=== PATIENT | female | born 1935 | race Caucasian/White ===

== ENCOUNTER → 2016-05-31 | Outpatient (CLI) | payer OTHER, MEDICARE ==
[~2016-05-31] MED LIST: ACET-1256 PO; ASPEC81 PO; ASTN; ATEN-173 PO; CLR10 PO; CLTP PO; GLUC750T PO; LSX20 PO; MULT-845 PO; NXM/40 PO; OMEG120013 PO
--- NOTE | 2016-05-31 11:51 | DIAGNOSTIC IMAGING REPORT ---
ULTRASOUND LEFT VENOUS DOPP LOWER EXT UNILAT CLINICAL HISTORY: Left leg edema COMPARISON STUDY: No previous studies for comparison. FINDINGS: Real-time and color flow Doppler imaging were performed. Flow was seen within the femoral, popliteal and calf veins with no intraluminal thrombus demonstrated. The saphenous vein is patent. IMPRESSION: No evidence of left lower extremity DVT. Electronically signed by: Ivan Figueroa M.D. 05/31/2016 11:50 AM Dictated Date/Time: 05/31/2016 11:50 AM
--- NOTE | 2016-05-31 12:10 | DIAGNOSTIC IMAGING REPORT ---
LEFT FOOT MIN 3 VIEWS ROUTINE CLINICAL HISTORY: LEFT LOWER LEG Edema, hx FALL, PT TO ULTRA AFTER PLEASE COMPARISON: None. DISCUSSION: Moderate soft tissue edema. Moderate degenerative change throughout all major osseous structures. No acute bony abnormality. IMPRESSION: Soft tissue edema. Degenerative change. No acute bony abnormality. Electronically signed by: oDv Ramsey M.D. 05/31/2016 12:08 PM Dictated Date/Time: 05/31/2016 12:07 PM
--- NOTE | 2016-05-31 12:14 | DIAGNOSTIC IMAGING REPORT ---
LEFT ANKLE MIN 3 VIEWS ROUTINE CLINICAL HISTORY: Left ankle pain and edema status post trauma COMPARISON: None. DISCUSSION: There is a tiny age-indeterminate avulsion at the level of the lateral malleolar tip. No tibial fractures are visualized. The ankle mortise appears intact. There is mild soft tissue swelling. There is a tiny plantar calcaneal spur. IMPRESSION: Tiny age-indeterminate avulsion at the level of the lateral malleolar tip Electronically signed by: Ivan Figuerao M.D. 05/31/2016 12:13 PM Dictated Date/Time: 05/31/2016 12:12 PM
--- NOTE | 2016-05-31 12:28 | DIAGNOSTIC IMAGING REPORT ---
LEFT TIBIA/FIBULA 2 VIEWS ROUTINE CLINICAL HISTORY: LEFT LOWER LEG EDEMA, FALL trauma. Pain. COMPARISON: None. DISCUSSION: The bones and joint spaces appear intact. There is no evidence of fracture, dislocation or bony disease. Moderate degenerative change of the ankle as well as knee. No acute bony abnormality. Moderate nonspecific soft tissue edema IMPRESSION: Soft tissue edema. No acute bony abnormality. Electronically signed by: Dov Ramsey M.D. 05/31/2016 12:26 PM Dictated Date/Time: 05/31/2016 12:25 PM
== END | disposition home or self-care (01) ==
LOC: C.ULTR 11:18
PROVIDERS: ATTEND Family Medicine
DX: R60.0 Localized edema (principal); Z91.81 History of falling; S82.65XA Nondisplaced fracture of lateral malleolus of left fibula, initial encounter for closed fracture; W19.XXXA Unspecified fall, initial encounter

== ENCOUNTER → 2016-07-17 | Outpatient (CLI) | payer OTHER, MEDICARE ==
--- NOTE | 2016-07-17 16:25 | MAMMOGRAPHY REPORT ---
BILATERAL DIGITAL SCREENING MAMMOGRAM WITH CAD: 07/17/2016 CLINICAL HISTORY: Routine screening examination. TECHNIQUE: Bilateral CC and MLO views were obtained. Current study was also evaluated with a Comput er Aided Detection (CAD) system. COMPARISON: Comparison is made to exams dated: 07/12/2015 mammogram, 07/09/2014 mammogram, 03/19/2013 m ammogram, 03/17/2011 mammogram, 03/16/2010 mammogram, and 03/12/2009 mammogram - [facility]. BREAST COMPOSITION: The tissue of both breasts is heterogeneously dense, which may obscure small ma sses. FINDINGS: There are moderate vascular calcifications in the breasts. No suspicious mass, devops solutions architect ural distortion or cluster of microcalcifications is seen. IMPRESSION: ACR BI-RADS CATEGORY 1: NEGATIVE There is no mammographic evidence of malignancy. A 1 year screening mammogram is recommended. The p atient will receive written notification of the results. Approximately 10% of breast cancers are not detected with mammography. A negative mammographic repor t should not delay biopsy if a clinically suggestive mass is present. Hannah Guillen M.D. ay/:07/17/2016 14:57:44 Fine Grade Operator: Annita SANDHU(Isabella)(M), [facility] letter sent: Normal 1/2 BI-RADS Code: ACR BI-RADS Category 1: Negative
== END | disposition home or self-care (01) ==
LOC: C.MAMM 10:42
PROVIDERS: ATTEND Physician Assistant
DX: Z12.31 Encounter for screening mammogram for malignant neoplasm of breast (principal)

== ENCOUNTER → 2017-02-27 | Outpatient (CLI) | payer OTHER, MEDICARE ==
--- NOTE | 2017-02-27 10:04 | DIAGNOSTIC IMAGING REPORT ---
ULTRASOUND OF THE THYROID GLAND CLINICAL HISTORY: Thyroid nodules. COMPARISON STUDY: Thyroid ultrasound dated 02/21/2016. TECHNIQUE: Real-time, grayscale, and color flow sonography of the thyroid gland is performed utilizing a high-frequency linear transducer. Images are reviewed in the transverse and longitudinal planes. FINDINGS: Right lobe: The right lobe of the thyroid gland is normal in size and heterogeneous in echotexture, measuring 4.4 x 2.3 x 2.1 cm. A slightly hyperechoic solid and cystic nodule in the mid to lower pole measures 1.6 x 1.6 x 1.6 cm (previously measured 1.7 x 1.3 x 1.6 cm). Additional subcentimeter nodules are identified. Left lobe: The left lobe of the thyroid gland is normal in size and heterogeneous in echotexture, measuring 5.1 x 1.7 x 1.5 cm. A hypoechoic nodule in the lower pole measures 0.9 x 0.8 x 1.1 cm (previously measured 0.8 x 0.7 x 1.0 cm). Additional subcentimeter nodules are identified. Isthmus: The thyroid isthmus is heterogeneous and measures 0.2 cm in AP diameter. IMPRESSION: Heterogeneous and multinodular thyroid gland as above, not significantly changed from 02/21/2016. Electronically signed by: Bossman Rivera M.D. 02/27/2017 10:02 AM Dictated Date/Time: 02/27/2017 10:00 AM
== END | disposition home or self-care (01) ==
LOC: C.ULTR 09:19
PROVIDERS: ATTEND Physician Assistant
DX: E04.2 Nontoxic multinodular goiter (principal)

== ENCOUNTER 2017-06-04 06:06 | Inpatient (IN) | payer OTHER, MEDICARE ==
[~2017-06-04] VITALS: Ht 149.9 cm; Wt 68.5 kg
[2017-06-04] MEDS ORDERED: ALUMINUM/MAGNESIUM SUSP 30 ML UDC PO STA (06:20)
--- NOTE | 2017-06-04 06:28 | EMERGENCY ROOM VISIT NOTE ---
History Report prepared by Ilda: Shadi Bocanegra Under the Supervision of: Dr. Satnam Perez D.O. First contact with patient: 06:15 Chief Complaint: CARDIAC ASSESSMENT Stated Complaint: PACEMAKER FAILING,HIGH BLOOD PRESSURE Nursing Triage Summary: patient took BP this morning because she felt like she was very hot. states her pacer battery has been for approx two weeks and was scheduled for tomorrow to have it replaced. denies CP but states had SOB earlier this morning History of Present Illness The patient is a 81 year old female who presents to the Emergency Room with complaints of dizziness and upper abdominal pain. Patient states that she woke this morning and felt "hot" through her head. She also describes a nausea as well as an upper abdominal fullness. She has had these symptoms for approximately 2 weeks. She was recently seen by her primary abalone fisherman and was found that her pacemaker is starting to fail. Her battery is currently 10% and she is scheduled for battery replacement surgery tomorrow. She denies having any chest pain or shortness of breath. She does have some swelling in the lower extremities but this is not new for her. She denies having any fever or dysuria frequency or back pain. She states nothing makes the symptoms worse and nothing makes the symptoms better at this time. She states it is ongoing ever since this morning when she woke up. She states that she felt fine when she went to bed last night. Source of History: patient Onset: this morning Position: abdomen (upper) Symptom Intensity: moderate Quality: pressure Timing: constant Associated Symptoms: + nausea, No fevers, No chest pain, No SOB, No urinary symptoms Review of Systems See HPI for pertinent positives & negatives. A total of 10 systems reviewed and were otherwise negative. Past Medical & Surgical Medical Problems: (1) Benign hypertension (2) Gastroesophageal reflux disease (3) Hernia repair (4) Hyperlipidemia (5) Implantation of cardiac pacemaker (6) Osteoporosis (7) right carpal tunnel repair (8) Total replacement of hip (9) Transient ischemic attack (TIA) Family History Hypertension Stroke Social History Smoking Status: Never Smoker Alcohol Use: none Marital Status: Housing Status: lives with family Occupation Status: retired Current/Historical Medications Scheduled Acetaminophen (Tylenol), 1,000 MG PO TID Aspirin Enteric Coated (Ecotrin Or Generic), 81 MG PO HS Atenolol (Tenormin), 25 MG PO BID Atorvastatin (Lipitor), 10 MG PO HS Calcium Carbonate-Vitamin D W/ (Caltrate 600 Plus), 1 TAB PO BID Cholecalciferol (Vitamin D3), 1,000 UNITS PO QAM Diltiazem Hcl (Diltiazem Cd), 240 MG PO QAM Esomeprazole Magnesium (Nexium), 20 MG PO DAILY Furosemide (Furosemide), 20 MG PO DAILY Glucosamine-Chondroitin (Glucosamine/Chondroitin T), 1 TAB PO BID Loratadine (Claritin), 10 MG PO DAILY Multiple Vitamins W/ Minerals (Centrum Silver Adult 50+), 1 TAB PO DAILY Alba-3 Fatty Acids (Fish Oil), 2,400 MG PO QAM Potassium Chloride (Micro-K Ext Rel), 10 MEQ PO DAILY Rosuvastatin Calcium (Crestor), 5 MG PO QDD Allergies Coded Allergies: Lisinopril (Verified Allergy, Severe, TONGUE SWELLING, 06/04/17) Adhesives (Verified Allergy, Mild, TAPE-RASH, 06/04/17) Physical Exam Vital Signs Date Time Temp Pulse Resp B/P (MAP) Pulse Ox O2 Delivery O2 Flow Rate FiO2 06/04/17 11:07 36.5 65 18 142/80 (100) 93 Room Air 06/04/17 10:49 65 18 130/72 93 Room Air 06/04/17 10:18 66 22 125/79 93 Room Air 06/04/17 09:20 93 Room Air 06/04/17 08:17 64 18 171/89 95 Room Air 06/04/17 06:20 65 06/04/17 06:13 Room Air 06/04/17 06:13 36.5 65 18 167/83 94 Room Air 06/04/17 06:12 94 Room Air Physical Exam GENERAL: Patient is awake alert in no acute distress patient is resting comfortably and showing no signs of anxiety EYES: The conjunctivae are clear. The pupils are round and reactive. EARS, NOSE, MOUTH AND THROAT: The nose is without any evidence of any deformity. Mucous membranes are moist tongue is midline NECK: The neck is nontender and supple. RESPIRATORY: Normal respiratory effort is noted there is no evidence of wheezing rhonchi or rales CARDIOVASCULAR: Regular rate and rhythm noted there no murmurs rubs or gallops normal S1 normal S2 GASTROINTESTINAL: The abdomen is mildly distended but soft. There is tenderness in the epigastric region as well as right upper quadrant. No guarding or rigidity was appreciated. BACK: No midline tenderness or or step-off noted range of motion in flexion extension as well as rotation no signs of muscle spasm noted MUSCULOSKELETAL/EXTREMITIES: There is no evidence of gross deformity full range of motion is noted in the hips and shoulders SKIN: There is no obvious evidence of any rash. Trace pedal edema was noted. NEUROLOGIC: Patient is awake alert and oriented x3. Medical Decision & Procedures ER Provider Diagnostic Interpretation: Radiology results as stated below per my review and radiologist interpretation: CHEST ONE VIEW PORTABLE CLINICAL HISTORY: 81 years-old Female presenting with ABDOMINAL PAIN/GI. TECHNIQUE: Portable upright AP view of the chest was obtained. COMPARISON: 02/21/2015. FINDINGS: Left subclavian pacer with leads to the right atrium and right ventricular apex. Atherosclerosis of aortic arch. Cardiac silhouette normal in size. Mild prominence of pulmonary vasculature. Hazy perihilar and bibasilar opacities. Trace left pleural effusion suspected. No pneumothorax. Degenerative changes of the glenohumeral joints. Upper abdomen normal. IMPRESSION: 1. Pulmonary vascular prominence with hazy perihilar and bibasilar opacities most suggestive of pulmonary edema. 2. Trace left pleural effusion. Electronically signed by: Zuhair Baer M.D. 06/04/2017 6:48 AM Dictated Date/Time: 06/04/2017 6:47 AM ABD/PELVIS NO IV OR ORAL CONT CLINICAL HISTORY: 81 years-old Female presenting with upper abd pain. TECHNIQUE: Multidetector CT of the abdomen and pelvis was performed without the use of intravenous contrast. IV contrast: None. A dose lowering technique was used consistent with the principles of ALARA (as low as reasonably achievable). COMPARISON: 05/06/2013. CT DOSE (mGy.cm): The estimated cumulative dose is 489.43 mGy.cm. FINDINGS: Tax Assistant topogram: Posterior lumbar fusion hardware and bilateral total hip arthroplasties. Lung bases: Respiratory motion artifact limits evaluation of the lung bases. Bandlike peribronchovascular opacities in the lower lobes possibly atelectasis. Mild bronchial wall thickening most notable in the right lower lobe. Normal heart size. Coronary artery calcification. 2 cardiac leads are partially visualized. No pericardial effusion. Small bilateral pleural effusions. Liver: Normal morphology. Normal liver density. Periportal edema suggested. Biliary: No gross biliary ductal dilatation allowing for noncontrast technique. Physiologic distention of the gallbladder. No convincing evidence of gallbladder wall thickening or pericholecystic inflammatory change allowing for noncontrast technique. Pancreas: Mild parenchymal atrophy. Trace fat infiltration along the dorsum of the pancreatic body-tail suggested. Spleen: Normal noncontrast appearance. Adrenal glands: Normal noncontrast appearance. Kidneys and ureters: Normal noncontrast appearance. No nephrolithiasis. No hydronephrosis. Ureters poorly visualized, especially in the distal portions secondary to streak artifact. Bladder: Not well assessed due to extensive streak artifact. Pelvic organs: Not well assessed due to extensive streak artifact. Few coarse calcifications in the uterine parenchyma possibly related to calcified uterine fibroids. Grossly normal noncontrast appearance of the ovaries though they are somewhat prominent for the patient's age. Bowel: Diverticulosis of the sigmoid colon. No pericolonic inflammatory change. Scattered diverticula elsewhere. The appendix is not visualized although no inflammatory changes evident in the right lower quadrant. No bowel obstruction. Peritoneal cavity: No free fluid or intraperitoneal gas. Lymph nodes: No gross lymphadenopathy allowing for noncontrast technique. Vasculature: Atherosclerosis of the normal caliber abdominal aorta. Abdominal wall: Surgical incision along the inferolateral region. Nonspecific subcutaneous edema in the lumbar region. Fat-containing inguinal hernia suggested. Musculoskeletal: Atrophy of the left psoas muscle and left gluteus muscle complex. Postsurgical changes of total bilateral hip arthroplasty. Posterior lumbar fusion hardware also noted with laminectomy defects. Osteopenia. IMPRESSION: 1. Suggestion of periportal edema, which is nonspecific and could be related to aggressive volume resuscitation. 2. Likely physiologic distention of the gallbladder. If there is clinical concern for gallbladder pathology, ultrasound is recommended given the noncontrast technique on the current exam limits evaluation. 3. Trace peripancreatic fat infiltration suggested along the dorsum of the body-tail. Correlate with lipase to exclude pancreatitis. 4. Diverticulosis. 5. Small bilateral pleural effusions with bibasilar atelectasis. 6. Overall limited examination due to noncontrast technique and streak artifact arising from orthopedic hardware. Electronically signed by: Zuhair Baer M.D. 06/04/2017 7:03 AM Dictated Date/Time: 06/04/2017 6:53 AM GALLBLADDER-ABD LIMITED CLINICAL HISTORY: 81 years-old Female presenting with upper abd pain. TECHNIQUE: Real-time grayscale and limited color Doppler ultrasound imaging of the abdomen limited to the right upper quadrant was performed. COMPARISON: None. FINDINGS: Pancreas: Visualized portions of the pancreatic head and body normal. Liver: Normal echogenicity and echotexture. No sonographic evidence of hepatic mass. Main portal vein patent with normal directional flow. Biliary: No intrahepatic biliary ductal dilatation. Common bile duct measures up to 3 mm in diameter. Gallbladder: Physiologic distention of the gallbladder. No evidence of gallstones, gallbladder wall thickening, gallbladder distention, or pericholecystic fluid or inflammatory change. Right kidney: Normal in appearance. No hydronephrosis. Ascites: None. Other: Right pleural effusion. IMPRESSION: 1. No cholelithiasis or biliary ductal dilatation. 2. Right pleural effusion. Electronically signed by: Zuhair Baer M.D. 06/04/2017 8:06 AM Dictated Date/Time: 06/04/2017 8:02 AM Laboratory Results Test 06/04/17 06:15 06/04/17 08:15 Immature Granulocyte % (Auto) 0.2 % White Blood Count 5.75 K/uL (4.8-10.8) Red Blood Count 4.02 M/uL (4.2-5.4) Hemoglobin 13.1 g/dL (12.0-16.0) Hematocrit 38.4 % (37-47) Mean Corpuscular Volume 95.5 fL (80-100) Mean Corpuscular Hemoglobin 32.6 pg (25-34) Mean Corpuscular Hemoglobin Concent 34.1 g/dl (32-36) Platelet Count 181 K/uL (130-400) Mean Platelet Volume 9.0 fL (7.4-10.4) Neutrophils (%) (Auto) 66.7 % Lymphocytes (%) (Auto) 24.5 % Monocytes (%) (Auto) 7.3 % Eosinophils (%) (Auto) 1.0 % Basophils (%) (Auto) 0.3 % Neutrophils # (Auto) 3.83 K/uL (1.4-6.5) Lymphocytes # (Auto) 1.41 K/uL (1.2-3.4) Monocytes # (Auto) 0.42 K/uL (0.11-0.59) Eosinophils # (Auto) 0.06 K/uL (0-0.5) Basophils # (Auto) 0.02 K/uL (0-0.2) Immature Granulocyte # (Auto) 0.01 K/uL (0.00-0.02) Prothrombin Time 11.6 SECONDS (9.0-12.0) Prothromb Time International Ratio 1.1 (0.9-1.1) Activated Partial Thromboplast Time 25.7 SECONDS (21.0-31.0) Partial Thromboplastin Ratio 1.0 Total Bilirubin 0.5 mg/dl (0.2-1) Direct Bilirubin 0.2 mg/dl (0-0.2) Aspartate Amino Transf (AST/SGOT) 29 U/L (15-37) Alanine Aminotransferase (ALT/SGPT) 35 U/L (12-78) Alkaline Phosphatase 95 U/L (45-117) Total Creatine Kinase 114 U/L (26-192) Creatine Kinase MB 1.4 ng/ml (0.5-3.6) Creatine Kinase MB Ratio 1.2 (0-3.0) Troponin I < 0.015 ng/ml (0-0.045) Total Protein 6.7 gm/dl (6.4-8.2) Albumin 3.5 gm/dl (3.4-5.0) Amylase Level 30 U/L (25-115) Lipase 104 U/L (73-393) Urine Color YELLOW Urine Appearance CLEAR (CLEAR) Urine pH 5.5 (4.5-7.5) Urine Specific [place] 1.009 (1.000-1.030) Urine Protein NEG (NEG) Urine Glucose (UA) NEG (NEG) Urine Ketones NEG (NEG) Urine Occult Blood NEG (NEG) Urine Nitrite NEG (NEG) Urine Bilirubin NEG (NEG) Urine Urobilinogen NEG (NEG) Urine Leukocyte Esterase NEG (NEG) Laboratory results per my review. Medications Administered Medications (Trade) Dose Ordered Sig/Janet Route Start Time Stop Time Status Last Admin Dose Admin Ondansetron HCl (Zofran Odt) 4 mg ONE ONCE PO 06/04/17 06:30 06/04/17 06:31 DC 06/04/17 06:27 4 MG Al Hydroxide/Mg Hydroxide (Maalox Susp) 30 ml NOW STAT PO 06/04/17 06:20 06/04/17 06:21 DC 06/04/17 06:27 30 ML Ondansetron HCl (Zofran Inj) 4 mg NOW STAT IV 06/04/17 08:20 06/04/17 08:21 DC 06/04/17 08:28 4 MG ECG Per My Interpretation Indication: abdominal pain Rate (beats per minute): 68 Rhythm: other (Ventricular pacer noted) Findings: PVC Comparison ECG Date: V pacer has replaced atrial paced rhythm ED Course 0615: The patient was evaluated in room A3. A complete history and physical examination were performed. 0620: Ordered Maalox Susp 30 ml PO 0630: Ordered Zofran Odt 4 mg PO 0710: I informed the patient that she will be getting a gallbladder US at this time. 0820: Ordered Zofran Inj 4 mg IV 0830: I discussed the patient's case with Dr. Vanegas of Cardiology at this time. They recommended changing the patient's pacemaker battery as an inpatient. 0847: Upon reevaluation, the patient is resting. I discussed results and treatment plan with her. She verbalizes agreement and understanding. I spoke with Dr. Vicente of the [facility]. The patient will be evaluated for further management and care. Medical Decision Prior records/ancillary studies reviewed. Triage Nursing notes reviewed. The patient's history was concerning for abdominal pain. Differential diagnosis: Etiologies such as appendicitis, diverticulitis, PUD, biliary pathology, UTI, pancreatitis, obstruction, mesenteric ischemia, aortic pathology, infections, inflammatory bowel disease, renal colic, as well as others were entertained. The patient is an 81-year-old female who presented to the emergency department for an evaluation of dizziness and upper abdominal discomfort. The patient describes upper abdominal discomfort and fullness. She also has dizziness and nausea. The patient was recently diagnosed with pacemaker malfunction. She appears to be in a battery save mode at this time. I discussed patient's laboratory and radiographic studies with her. I also discussed her case with her on-call cardiology group. At this time they recommended that we consider having further evaluation as an inpatient so the patient can have the pacemaker evaluated better and possibly replaced given that she appears to have some signs of pulmonary edema at this time. I discussed the case with the on-call hospitalist. They have agreed to evaluate the patient in the emergency department for further management and disposition. Medication Reconcilliation Current Medication List: was personally reviewed by me Blood Pressure Screening Patient's blood pressure: Elevated blood pressure Referred to the hospitalist. Consults Time Called: [phone] Consulting Physician: Dr. Vanegas - Cardiology Returned Call: 08 We discussed the patient's case. They recommended changing the patient's pacemaker battery while she is an inpatient. Additional Consults: Time Called: 08 Consulted Physician: Dr. Vicente - [facility] Returned Call: [phone] Additional Comments: I discussed the patient's case with her. The patient will be evaluated for further management. Impression Primary Impression: Pleural effusion Additional Impressions: Generalized weakness Pacemaker at end of battery life CHF (congestive heart failure) Scribe Attestation The scribe's documentation has been prepared under my direction and personally reviewed by me in its entirety. I confirm that the note above accurately reflects all work, treatment, procedures, and medical decision making performed by me. Departure Information Dispostion Being Evaluated By Hospitalist Referrals Odette Monteiro PA-C (PCP) Patient Instructions My [facility] Problem Qualifiers Additional Impressions: CHF (congestive heart failure) Heart failure type: unspecified Heart failure chronicity: acute on chronic Qualified Codes: I50.9 - Heart failure, unspecified
[2017-06-04] MEDS ORDERED: ONDANSETRON 4MG OD TAB PO ONE (06:30)
[2017-06-04 06:37] LABS: BASO % 0.3 %; BASO ABS # 0.02 K/uL (0-0.2); EOS ABS # 0.06 K/uL (0-0.5); HEMATOCRIT 38.4 % (37-47); HEMOGLOBIN 13.1 g/dL (12.0-16.0); IG# 0.01 K/uL (0.00-0.02); LYMPH % 24.5 %; LYMPH ABS # 1.41 K/uL (1.2-3.4); MEAN CELL VOLUME 95.5 fL (80-100); MEAN CORPUSCULAR HEMOGLOBIN 32.6 pg (25-34); MEAN CORPUSCULAR HGB CONC 34.1 g/dl (32-36); MONO % 7.3 %; MONO ABS # 0.42 K/uL (0.11-0.59); NEUT % 66.7 %; NEUT ABS # 3.83 K/uL (1.4-6.5); PLATELET COUNT 181 K/uL (130-400); RED CELL DISTRIBUTION WIDTH CV 14.5 % (11.5-14.5); RED CELL DISTRIBUTION WIDTH SD 50.6 fL (36.4-46.3); WHITE BLOOD COUNT 5.75 K/uL (4.8-10.8)
[2017-06-04] MEDS ORDERED: CALCTAB7 PO (06:46)
[2017-06-04] MEDS ORDERED: POTA10CA28 PO (06:46)
[2017-06-04] MEDS ORDERED: DLTCD/240 PO (06:46)
[2017-06-04] MEDS ORDERED: CHOL1000 PO (06:46)
[2017-06-04] MEDS ORDERED: LPT10 PO (06:46)
[2017-06-04] MEDS ORDERED: ASPI81TA21 PO (06:46)
[2017-06-04] MEDS ORDERED: ESOM20CA PO (06:46)
[2017-06-04] MEDS ORDERED: ROSU5TAB PO (06:46)
--- NOTE | 2017-06-04 06:49 | DIAGNOSTIC IMAGING REPORT ---
CHEST ONE VIEW PORTABLE CLINICAL HISTORY: 81 years-old Female presenting with ABDOMINAL PAIN/GI. TECHNIQUE: Portable upright AP view of the chest was obtained. COMPARISON: 02/21/2015. FINDINGS: Left subclavian pacer with leads to the right atrium and right ventricular apex. Atherosclerosis of aortic arch. Cardiac silhouette normal in size. Mild prominence of pulmonary vasculature. Hazy perihilar and bibasilar opacities. Trace left pleural effusion suspected. No pneumothorax. Degenerative changes of the glenohumeral joints. Upper abdomen normal. IMPRESSION: 1. Pulmonary vascular prominence with hazy perihilar and bibasilar opacities most suggestive of pulmonary edema. 2. Trace left pleural effusion. Electronically signed by: Zuhair Baer M.D. 06/04/2017 6:48 AM Dictated Date/Time: 06/04/2017 6:47 AM
[2017-06-04 06:58] LABS: ALBUMIN 3.5 gm/dl (3.4-5.0); ALT/SGPT 35 U/L (12-78); BLOOD UREA NITROGEN 17 mg/dl (7-18); CALCIUM 8.6 mg/dl (8.5-10.1); CARBON DIOXIDE 23 mmol/L (21-32); CREATININE 0.95 mg/dl (0.60-1.20); GLUCOSE 110 mg/dl (70-99); LIPASE 104 U/L (73-393); POTASSIUM 3.6 mmol/L (3.5-5.1); SODIUM 140 mmol/L (136-145)
[2017-06-04 07:04] LABS: ALKALINE PHOSPHATASE 95 U/L (45-117); AST/SGOT 29 U/L (15-37); CKMB 1.4 ng/ml (0.5-3.6); INR 1.1 (0.9-1.1); PTT PATIENT 25.7 SECONDS (21.0-31.0); TOTAL PROTEIN 6.7 gm/dl (6.4-8.2)
--- NOTE | 2017-06-04 07:05 | DIAGNOSTIC IMAGING REPORT ---
ABD/PELVIS NO IV OR ORAL CONT CLINICAL HISTORY: 81 years-old Female presenting with upper abd pain. TECHNIQUE: Multidetector CT of the abdomen and pelvis was performed without the use of intravenous contrast. IV contrast: None. A dose lowering technique was used consistent with the principles of ALARA (as low as reasonably achievable). COMPARISON: 05/06/2013. CT DOSE (mGy.cm): The estimated cumulative dose is 489.43 mGy.cm. FINDINGS: Stippler topogram: Posterior lumbar fusion hardware and bilateral total hip arthroplasties. Lung bases: Respiratory motion artifact limits evaluation of the lung bases. Bandlike peribronchovascular opacities in the lower lobes possibly atelectasis. Mild bronchial wall thickening most notable in the right lower lobe. Normal heart size. Coronary artery calcification. 2 cardiac leads are partially visualized. No pericardial effusion. Small bilateral pleural effusions. Liver: Normal morphology. Normal liver density. Periportal edema suggested. Biliary: No gross biliary ductal dilatation allowing for noncontrast technique. Physiologic distention of the gallbladder. No convincing evidence of gallbladder wall thickening or pericholecystic inflammatory change allowing for noncontrast technique. Pancreas: Mild parenchymal atrophy. Trace fat infiltration along the dorsum of the pancreatic body-tail suggested. Spleen: Normal noncontrast appearance. Adrenal glands: Normal noncontrast appearance. Kidneys and ureters: Normal noncontrast appearance. No nephrolithiasis. No hydronephrosis. Ureters poorly visualized, especially in the distal portions secondary to streak artifact. Bladder: Not well assessed due to extensive streak artifact. Pelvic organs: Not well assessed due to extensive streak artifact. Few coarse calcifications in the uterine parenchyma possibly related to calcified uterine fibroids. Grossly normal noncontrast appearance of the ovaries though they are somewhat prominent for the patient's age. Bowel: Diverticulosis of the sigmoid colon. No pericolonic inflammatory change. Scattered diverticula elsewhere. The appendix is not visualized although no inflammatory changes evident in the right lower quadrant. No bowel obstruction. Peritoneal cavity: No free fluid or intraperitoneal gas. Lymph nodes: No gross lymphadenopathy allowing for noncontrast technique. Vasculature: Atherosclerosis of the normal caliber abdominal aorta. Abdominal wall: Surgical incision along the inferolateral region. Nonspecific subcutaneous edema in the lumbar region. Fat-containing inguinal hernia suggested. Musculoskeletal: Atrophy of the left psoas muscle and left gluteus muscle complex. Postsurgical changes of total bilateral hip arthroplasty. Posterior lumbar fusion hardware also noted with laminectomy defects. Osteopenia. IMPRESSION: 1. Suggestion of periportal edema, which is nonspecific and could be related to aggressive volume resuscitation. 2. Likely physiologic distention of the gallbladder. If there is clinical concern for gallbladder pathology, ultrasound is recommended given the noncontrast technique on the current exam limits evaluation. 3. Trace peripancreatic fat infiltration suggested along the dorsum of the body-tail. Correlate with lipase to exclude pancreatitis. 4. Diverticulosis. 5. Small bilateral pleural effusions with bibasilar atelectasis. 6. Overall limited examination due to noncontrast technique and streak artifact arising from orthopedic hardware. Electronically signed by: Zuhair Baer M.D. 06/04/2017 7:03 AM Dictated Date/Time: 06/04/2017 6:53 AM
--- NOTE | 2017-06-04 08:07 | DIAGNOSTIC IMAGING REPORT ---
GALLBLADDER-ABD LIMITED CLINICAL HISTORY: 81 years-old Female presenting with upper abd pain. TECHNIQUE: Real-time grayscale and limited color Doppler ultrasound imaging of the abdomen limited to the right upper quadrant was performed. COMPARISON: None. FINDINGS: Pancreas: Visualized portions of the pancreatic head and body normal. Liver: Normal echogenicity and echotexture. No sonographic evidence of hepatic mass. Main portal vein patent with normal directional flow. Biliary: No intrahepatic biliary ductal dilatation. Common bile duct measures up to 3 mm in diameter. Gallbladder: Physiologic distention of the gallbladder. No evidence of gallstones, gallbladder wall thickening, gallbladder distention, or pericholecystic fluid or inflammatory change. Right kidney: Normal in appearance. No hydronephrosis. Ascites: None. Other: Right pleural effusion. IMPRESSION: 1. No cholelithiasis or biliary ductal dilatation. 2. Right pleural effusion. Electronically signed by: Zuhair Baer M.D. 06/04/2017 8:06 AM Dictated Date/Time: 06/04/2017 8:02 AM
[2017-06-04] MEDS ORDERED: ONDANSETRON INJ 2 MG/ML 2 ML VIAL IV STA (08:20)
[2017-06-04 09:20] VITALS: O2SAT 93; Ht 149.9 cm; Wt 68.5 kg
[2017-06-04] MEDS ORDERED: ACETAMINOPHEN 325 MG TAB PO PRN (10:00)
[2017-06-04] MEDS ORDERED: ENOXAPARIN 40 MG/0.4 ML SYR SC SCH (10:00)
[2017-06-04] MEDS ORDERED: ALUMINUM/MAGNESIUM/SIMETH (MAALOX MAX) 30 ML UDC PO PRN (10:00)
[2017-06-04] MEDS ORDERED: MAGNESIUM HYDROXIDE SUSP 30 ML UDC PO PRN (10:00)
[2017-06-04] MEDS ORDERED: POLYETHYLENE (MIRALAX) 17 GM PACK PO PRN (10:00)
[2017-06-04] MEDS ORDERED: ONDANSETRON INJ 2 MG/ML 2 ML VIAL IV PRN (10:00)
--- NOTE | 2017-06-04 10:33 | History and Physical ---
History & Physical Date & Time of Service: Jun 04, 2017 at 10:09 Chief Complaint: Pacemaker Failing,High Blood Pressure Primary Care Physician: Odette Monteiro PA-C History of Present Illness Source: patient, family, hospital records This is an 81 y/o female with a history of HTN, HLD, s/p pacemaker, peripheral edema, and h/o TIA 2014 who presented to the ED on 06/04 with nausea, abdominal pain, weakness and fatigue. The patient states that she has had nausea and an intermittent aching abdominal pain for the last 2 weeks. Her appetite has decreased as a result, and she feels generally weak and fatigued. She also notes some intermittent dizziness/lightheadedness but denies any falls or LOC. She notes that in the last week she has had lower extremity swelling and wheezing. She also states that she has decreased urinary output lately. She saw her printing sign machine operator 3 days ago, who started her on Lasix 20 mg PO qd. She has since taken 3 doses but has not seem much improvement in her edema or urinary output. The patient is concerned about her pacemaker, stating it only has 10% of battery life left. She was scheduled to have the battery replaced tomorrow. Currently, the patient denies nausea and abdominal pain after receiving medication in the ED. The patient denies fevers, chills, sweats, chest pain, palpitations, claudication, cough, shortness of breath, vomiting, dysuria, hematuria, urinary retention, paralysis, weakness, numbness and tingling. Past Medical/Surgical History HTN HLD S/p pacemaker--pt states this was placed in 1989 Peripheral edema TIA (2014) Family History Hypertension Myocardial infarction Stroke Social History Smoking Status: Never Smoker Smokeless Tobacco Use: No Alcohol Use: none Drug Use: none Marital Status: Housing status: lives alone Occupational Status: retired Immunizations History of Influenza Vaccine: Yes History of Tetanus Vaccine?: No History of Pneumococcal: Yes History of Hepatitis B Vaccine: No Multi-Drug Resistant Organisms History of MDRO: No Allergies Coded Allergies: Lisinopril (Verified Allergy, Severe, TONGUE SWELLING, 06/04/17) Adhesives (Verified Allergy, Mild, TAPE-RASH, 06/04/17) Home Medications Scheduled Acetaminophen (Tylenol), 1,000 MG PO TID Aspirin Enteric Coated (Ecotrin Or Generic), 81 MG PO HS Atenolol (Tenormin), 25 MG PO BID Atorvastatin (Lipitor), 10 MG PO HS Calcium Carbonate-Vitamin D W/ (Caltrate 600 Plus), 1 TAB PO BID Cholecalciferol (Vitamin D3), 1,000 UNITS PO QAM Diltiazem Hcl (Diltiazem Cd), 240 MG PO QAM Esomeprazole Magnesium (Nexium), 20 MG PO DAILY Furosemide (Furosemide), 20 MG PO DAILY Glucosamine-Chondroitin (Glucosamine/Chondroitin T), 1 TAB PO BID Loratadine (Claritin), 10 MG PO DAILY Multiple Vitamins W/ Minerals (Centrum Silver Adult 50+), 1 TAB PO DAILY [place]-3 Fatty Acids (Fish Oil), 2,400 MG PO QAM Potassium Chloride (Micro-K Ext Rel), 10 MEQ PO DAILY Rosuvastatin Calcium (Crestor), 5 MG PO QDD Review of Systems Constitutional: +Weak, fatigued. No fever, No chills, No sweats Eyes: No worsening of vision, No eye pain, No diplopia ENT: No hearing loss, No nasal symptoms, No trouble swallowing Respiratory: +Intermittent wheezing. No cough, No shortness of breath Cardiovascular: No chest pain, No claudication, No palpitations Abdomen: +Nausea, intermittent abdominal pain. No vomiting Musculoskeletal: No joint pain, No muscle pain, No swelling Genitourinary - Female: +Decreased urinary output. No dysuria, No urinary retention, No hematuria Neurologic: No paralysis, No weakness, No numbness/tingling Integumentary: No rash, No itch, No color change Physical Exam Vital Signs Date Time Temp Pulse Resp B/P (MAP) Pulse Ox O2 Delivery O2 Flow Rate FiO2 06/04/17 08:17 64 18 171/89 95 Room Air 06/04/17 06:20 65 06/04/17 06:13 Room Air 06/04/17 06:13 36.5 65 18 167/83 94 Room Air 06/04/17 06:12 94 Room Air General appearance: +Obese. Well-developed, well-nourished, no apparent distress Head: Normocephalic, atraumatic Eyes: Normal inspection, PERRL, EOMI ENT: Normal ENT inspection, hearing grossly normal, pharynx normal Neck: Supple, no JVD, trachea midline Respiratory/Chest: +Decreased breath sounds in bases bilaterally. Lungs clear to auscultation, no respiratory distress Cardiovascular: Regular rate & rhythm, no gallop, no murmur Abdomen/GI: +RLQ mildly TTP. Normal bowel sounds, soft Extremities/Musculoskeletal: +1-2+ pitting edema. Normal inspection, no calf tenderness Neurological/Psych: Alert, normal mood/affect, oriented x 3 Skin: Normal color, warm/dry, no rash Diagnostics Laboratory Results Results Past 24 Hours Test 06/04/17 06:15 06/04/17 08:15 Range/Units White Blood Count 5.75 4.8-10.8 K/uL Red Blood Count 4.02 4.2-5.4 M/uL Hemoglobin 13.1 12.0-16.0 g/dL Hematocrit 38.4 37-47 % Mean Corpuscular Volume 95.5 80-100 fL Mean Corpuscular Hemoglobin 32.6 25-34 pg Mean Corpuscular Hemoglobin Concent 34.1 32-36 g/dl Platelet Count 181 130-400 K/uL Mean Platelet Volume 9.0 7.4-10.4 fL Neutrophils (%) (Auto) 66.7 % Lymphocytes (%) (Auto) 24.5 % Monocytes (%) (Auto) 7.3 % Eosinophils (%) (Auto) 1.0 % Basophils (%) (Auto) 0.3 % Neutrophils # (Auto) 3.83 1.4-6.5 K/uL Lymphocytes # (Auto) 1.41 1.2-3.4 K/uL Monocytes # (Auto) 0.42 0.11-0.59 K/uL Eosinophils # (Auto) 0.06 0-0.5 K/uL Basophils # (Auto) 0.02 0-0.2 K/uL RDW Standard Deviation 50.6 36.4-46.3 fL RDW Coefficient of Variation 14.5 11.5-14.5 % Immature Granulocyte % (Auto) 0.2 % Immature Granulocyte # (Auto) 0.01 0.00-0.02 K/uL Prothrombin Time 11.6 9.0-12.0 SECONDS Prothromb Time International Ratio 1.1 0.9-1.1 Activated Partial Thromboplast Time 25.7 21.0-31.0 SECONDS Partial Thromboplastin Ratio 1.0 Sodium Level 140 136-145 mmol/L Potassium Level 3.6 3.5-5.1 mmol/L Chloride Level 107 98-107 mmol/L Carbon Dioxide Level 23 21-32 mmol/L Anion Gap 10.0 3-11 mmol/L Blood Urea Nitrogen 17 7-18 mg/dl Creatinine 0.95 0.60-1.20 mg/dl Est Creatinine Clear Calc Drug Dose 41.5 ml/min Estimated GFR () 65.6 Estimated GFR (Non- 56.6 BUN/Creatinine Ratio 17.4 10-20 Random Glucose 110 70-99 mg/dl Calcium Level 8.6 8.5-10.1 mg/dl Total Bilirubin 0.5 0.2-1 mg/dl Direct Bilirubin 0.2 0-0.2 mg/dl Aspartate Amino Transf (AST/SGOT) 29 15-37 U/L Alanine Aminotransferase (ALT/SGPT) 35 12-78 U/L Alkaline Phosphatase 95 45-117 U/L Total Creatine Kinase 114 26-192 U/L Creatine Kinase MB 1.4 0.5-3.6 ng/ml Creatine Kinase MB Ratio 1.2 0-3.0 Troponin I < 0.015 0-0.045 ng/ml Total Protein 6.7 6.4-8.2 gm/dl Albumin 3.5 3.4-5.0 gm/dl Amylase Level 30 25-115 U/L Lipase 104 73-393 U/L Urine Color YELLOW Urine Appearance CLEAR CLEAR Urine pH 5.5 4.5-7.5 Urine Specific [place] 1.009 1.000-1.030 Urine Protein NEG NEG Urine Glucose (UA) NEG NEG Urine Ketones NEG NEG Urine Occult Blood NEG NEG Urine Nitrite NEG NEG Urine Bilirubin NEG NEG Urine Urobilinogen NEG NEG Urine Leukocyte Esterase NEG NEG Diagnostic Radiology Reviewed the following studies and agree with interpretation as follows: CHEST ONE VIEW PORTABLE CLINICAL HISTORY: 81 years-old Female presenting with ABDOMINAL PAIN/GI. TECHNIQUE: Portable upright AP view of the chest was obtained. COMPARISON: 02/21/2015. FINDINGS: Left subclavian pacer with leads to the right atrium and right ventricular apex. Atherosclerosis of aortic arch. Cardiac silhouette normal in size. Mild prominence of pulmonary vasculature. Hazy perihilar and bibasilar opacities. Trace left pleural effusion suspected. No pneumothorax. Degenerative changes of the glenohumeral joints. Upper abdomen normal. IMPRESSION: 1. Pulmonary vascular prominence with hazy perihilar and bibasilar opacities most suggestive of pulmonary edema. 2. Trace left pleural effusion. ABD/PELVIS NO IV OR ORAL CONT CLINICAL HISTORY: 81 years-old Female presenting with upper abd pain. TECHNIQUE: Multidetector CT of the abdomen and pelvis was performed without the use of intravenous contrast. IV contrast: None. A dose lowering technique was used consistent with the principles of ALARA (as low as reasonably achievable). COMPARISON: 05/06/2013. CT DOSE (mGy.cm): The estimated cumulative dose is 489.43 mGy.cm. FINDINGS: Manager Immunology topogram: Posterior lumbar fusion hardware and bilateral total hip arthroplasties. Lung bases: Respiratory motion artifact limits evaluation of the lung bases. Bandlike peribronchovascular opacities in the lower lobes possibly atelectasis. Mild bronchial wall thickening most notable in the right lower lobe. Normal heart size. Coronary artery calcification. 2 cardiac leads are partially visualized. No pericardial effusion. Small bilateral pleural effusions. Liver: Normal morphology. Normal liver density. Periportal edema suggested. Biliary: No gross biliary ductal dilatation allowing for noncontrast technique. Physiologic distention of the gallbladder. No convincing evidence of gallbladder wall thickening or pericholecystic inflammatory change allowing for noncontrast technique. Pancreas: Mild parenchymal atrophy. Trace fat infiltration along the dorsum of the pancreatic body-tail suggested. Spleen: Normal noncontrast appearance. Adrenal glands: Normal noncontrast appearance. Kidneys and ureters: Normal noncontrast appearance. No nephrolithiasis. No hydronephrosis. Ureters poorly visualized, especially in the distal portions secondary to streak artifact. Bladder: Not well assessed due to extensive streak artifact. Pelvic organs: Not well assessed due to extensive streak artifact. Few coarse calcifications in the uterine parenchyma possibly related to calcified uterine fibroids. Grossly normal noncontrast appearance of the ovaries though they are somewhat prominent for the patient's age. Bowel: Diverticulosis of the sigmoid colon. No pericolonic inflammatory change. Scattered diverticula elsewhere. The appendix is not visualized although no inflammatory changes evident in the right lower quadrant. No bowel obstruction. Peritoneal cavity: No free fluid or intraperitoneal gas. Lymph nodes: No gross lymphadenopathy allowing for noncontrast technique. Vasculature: Atherosclerosis of the normal caliber abdominal aorta. Abdominal wall: Surgical incision along the inferolateral region. Nonspecific subcutaneous edema in the lumbar region. Fat-containing inguinal hernia suggested. Musculoskeletal: Atrophy of the left psoas muscle and left gluteus muscle complex. Postsurgical changes of total bilateral hip arthroplasty. Posterior lumbar fusion hardware also noted with laminectomy defects. Osteopenia. IMPRESSION: 1. Suggestion of periportal edema, which is nonspecific and could be related to aggressive volume resuscitation. 2. Likely physiologic distention of the gallbladder. If there is clinical concern for gallbladder pathology, ultrasound is recommended given the noncontrast technique on the current exam limits evaluation. 3. Trace peripancreatic fat infiltration suggested along the dorsum of the body-tail. Correlate with lipase to exclude pancreatitis. 4. Diverticulosis. 5. Small bilateral pleural effusions with bibasilar atelectasis. 6. Overall limited examination due to noncontrast technique and streak artifact arising from orthopedic hardware. GALLBLADDER-ABD LIMITED CLINICAL HISTORY: 81 years-old Female presenting with upper abd pain. TECHNIQUE: Real-time grayscale and limited color Doppler ultrasound imaging of the abdomen limited to the right upper quadrant was performed. COMPARISON: None. FINDINGS: Pancreas: Visualized portions of the pancreatic head and body normal. Liver: Normal echogenicity and echotexture. No sonographic evidence of hepatic mass. Main portal vein patent with normal directional flow. Biliary: No intrahepatic biliary ductal dilatation. Common bile duct measures up to 3 mm in diameter. Gallbladder: Physiologic distention of the gallbladder. No evidence of gallstones, gallbladder wall thickening, gallbladder distention, or pericholecystic fluid or inflammatory change. Right kidney: Normal in appearance. No hydronephrosis. Ascites: None. Other: Right pleural effusion. IMPRESSION: 1. No cholelithiasis or biliary ductal dilatation. 2. Right pleural effusion. EKG Reviewed EKG and agree with interpretation as follows: 68 bpm, ventricular paced Impression Assessment and Plan 81 y/o female with a history of HTN, HLD, s/p pacemaker, peripheral edema, and h /o TIA 2014 who presented to the ED on 06/04 with nausea, abdominal pain, weakness and fatigue. Pt afebrile, VSS on arrival. Non-hypoxic. CXR shows pulmonary edema. CT abdomen/pelvis largely unremarkable. Gallbladder ultrasound unremarkable. EKG no ischemic changes, ventricular paced. Labs grossly unremarkable. Pt given Zofran and Maalox in ED with relief. Pulmonary edema, peripheral edema--no previous h/o CHF -Admit to telemetry -Daily weights, strict I's & O's -Lasix 20 mg IV qd -Low sodium diet -Repeat echocardiogram. Last echo 2014 showed LVEF 60-65%. No wall motion abnormalities. Right ventricular systolic function normal. No significant valvular pathology. -Continue KCl 10 mEq PO qd Low battery of pacemaker -Pt states pacemaker placed in 1989. She had an episode of food poisoning w/ vomiting and diarrhea and was becoming syncopal, which was causing her "heart to stop" per pt -Scheduled for battery replacement with Dr. Diez on 06/05 -Cardiology consulted, appreciate recs. [facility] cardiology contacted by ED physician, will proceed w/inpatient replacement of battery -NPO after midnight -External pacing pads in place HTN, HLD--stable. BP elevated in ED, but pt states she has not taken any of her morning meds today -Continue diltiazem 240 mg PO qd, and Lipitor 10 mg PO qd -Per pt's med list, she is taking both Lipitor and Crestor. She confirms taking both. Will continue just Lipitor for now -Change atenolol to Lopressor 12.5 mg PO BID for now as shorter acting in case pacemaker fails prior to procedure Nausea, abdominal pain -CT abdomen/pelvis with distention of gallbladder. Trace peripancreatic fat infiltration suggested along dorsum of body-tail. No other acute findings -Gallbladder ultrasound unremarkable. No cholelithiasis or biliary ductal dilatation -Lipase and amylase WNL, LFTs WNL -Zofran prn and Protonix 40 mg PO qd -Continue to monitor for now DVT prophylaxis -Hold chemical ppx for procedure tomorrow -TAMIA noyola and SCDs Code Status -Level I, FULL RESUSCITATION STATUS Level of Care Telemetry Resuscitation Status FULL RESUSCITATION VTE Prophylaxis VTE Risk Assessment Done? Y/N: Yes Risk Level: Moderate Given or contraindicated: T.E.D. Stockings, SCD's Note Attending Note & Attestation: Pt seen/examined, chart reviewed, care plan d/w LINH Cui. I agree w/ the ash components of her admission documentation. 81yo female with long-standing pacemaker status - due to SSS? AV Block? - presenting with dyspnea, LE edema, nausea, stomach upset, and recent notification that her pacemaker battery is at end-of-life. Presented today with acute CHF along with the above GI symptoms. Extensive w/u in the ER w/o obvious cause for her GI symptoms. I saw the patient after she had received IV lasix and she felt better with her breathing; GI symptoms were better following anti-emetics. PMH, PSH, allergies, meds, sochx, famhx, ros - reviewed VSS, no fever, o2 sats normal in RA gen - nad neck - JVD present heart - RRR, s1, s2 lungs - decreased BS in the bases w/ b/l rales abd - soft, NT, ND, BS+, no HSM ext - 1+ edema b/l, varicose veins b/l pacer noted in left upper chest labs, EKG, cxr, CT abd/pelvis - noted echo with preserved EF, grade 2 diastolic dysfunction A/P: 1. acute diastolic CHF - diurese, BMP in am, daily weight, restrict salt/ fluids. Decompensated CHF due to pacemaker failure?? 2. GI upset, nausea - uncertain etiology - lipase, LFTs, CT all unremarkable; small amount of intra-abdominal fluid unlikely to be causing; doubt biliary cause; gastritis? GERD? 3. end-of-life pacemaker battery - to be replaced tomorrow by Dr. Rg Vicente MD
[2017-06-04 11:07] VITALS: BP 142/80; PULSE 65; TEMP 36.5; O2SAT 93
[2017-06-04] MEDS ORDERED: FUROSEMIDE INJ 20 MG in SYRINGE 0 ML IV ONE (11:15)
[2017-06-04] MEDS: ACETAMINOPHEN 500 MG TAB PO SCH ×2 (13:46→20:29)
--- NOTE | 2017-06-04 14:45 | ECHOCARDIOGRAM REPORT ---
*NOTICE TO RECEIVING LIBERTARIAN AGENCY This information is strictly Confidential and protected under [place] law. [place] law prohibits you from making any further disclosure of this information unless further disclosure is expressly permitted by the written consent of the person to whom it pertains or is authorized by law. A general authorization for the release of medical or other information is not sufficient for this purpose. Hospital accepts no responsibility if the information is made available to any other person, INCLUDING THE PATIENT. Interpretation Summary * Name: MARY STUART Study Date: 06/04/2017 10:30 AM BP: 171/89 mmHg * Patient [facility]: [facility] HR: 64 * : 1935 (M/d/yyyy) Gender: Female Height: 59 in * Age: 81 yrs Ethnicity: CA Weight: 163 lb * Ordering Physician: La Cui * Referring Physician: Self, Referred * Performed By: Keiry Avalos RDCS * * Reason For Study: Congestive Heart Failure * BSA: 1.7 m2 * -- Conclusions -- * Normal LV chamber size and wall thickness. * Normal LV systolic function, EF 60-65%. * No segmental left ventricular wall motion abnormalities are noted. * Grade II diastolic dysfunction. * Aortic valve sclerosis mild, without significant aortic valvular stenosis. * Mild mitral regurgitation. * Moderate tricuspid regurgitation. Procedure Details * A complete two-dimensional transthoracic echocardiogram was performed (2D, M-mode, Doppler and color flow Doppler). Left Ventricle * The left ventricle is normal in size. * There is normal left ventricular wall thickness. * Ejection Fraction = 60-65%. * Left ventricular systolic function is normal. * No segmental left ventricular wall motion abnormalities are noted. * The left ventricular wall motion is normal. Right Ventricle * The right ventricular cavity size is normal (basal dimension <4.2 cm in right ventricular apical 4-chamber view). * There is a pacemaker lead in the right ventricle. * The right ventricular systolic function is normal as assessed by tricuspid annular plane systolic excursion (TAPSE) (normal >1.5 cm). Atria * The left atrial size is normal. * Right atrial size is normal. * No ASD detected; PFO is not assessed. Mitral Valve * There is mild mitral annular calcification. * There is no mitral valve stenosis. * There is mild mitral regurgitation. Tricuspid Valve * The tricuspid valve anatomy is normal. * There is no tricuspid stenosis. * There is moderate tricuspid regurgitation. Aortic Valve * The aortic valve is trileaflet. * Aortic valve sclerosis mild, without significant aortic valvular stenosis. * There is no significant aortic regurgitation. Pulmonic Valve * The pulmonary valve is not well seen, but the Doppler examination is normal without significant regurgitation or stenosis. Great Vessels * The aortic root is normal size. Pericardium/Pleural * There is no pericardial effusion. Left Ventricular Diastolic Function * Diastolic dysfunction, Grade II (pseudonormalization pattern). MMode 2D Measurements and Calculations IVSd 0.87 cm IVSs 1.2 cm LVIDd 3.9 cm LVIDs 2.3 cm LVPWd 0.99 cm LVPWs 1.3 cm IVS/LVPW 0.88 FS 40.9 % EDV(Teich) 64.1 ml ESV(Teich) 17.7 ml EF(Teich) 72.4 % EDV(cubed) 57.3 ml ESV(cubed) 11.9 ml EF(cubed) 79.3 % % IVS thick 41.8 % % LVPW thick 30.5 % LV mass(C)d 107.8 grams LV mass(C)dI 63.8 grams/m\S\2 LV mass(C)s 82.7 grams LV mass(C)sI 48.9 grams/m\S\2 SV(Teich) 46.4 ml SI(Teich) 27.4 ml/m\S\2 SV(cubed) 45.4 ml SI(cubed) 26.9 ml/m\S\2 Ao root diam 2.9 cm Ao root area 6.5 cm\S\2 ACS 1.9 cm LA dimension 3.4 cm LA/Ao 1.2 LVAd ap4 28.3 cm\S\2 LVLd ap4 8.4 cm EDV(MOD-sp4) 82.1 ml EDV(sp4-el) 80.9 ml LVAs ap4 15.5 cm\S\2 LVLs ap4 6.8 cm ESV(MOD-sp4) 30.1 ml ESV(sp4-el) 29.9 ml EF(MOD-sp4) 63.3 % EF(sp4-el) 63.1 % LVAd ap2 27.3 cm\S\2 LVLd ap2 8.5 cm EDV(MOD-sp2) 73.8 ml EDV(sp2-el) 74.6 ml LVAs ap2 13.4 cm\S\2 LVLs ap2 6.2 cm ESV(MOD-sp2) 26.6 ml ESV(sp2-el) 24.7 ml EF(MOD-sp2) 64.0 % EF(sp2-el) 66.9 % LVLd %diff 1.3 % EDV(MOD-bp) 77.7 ml LVLs %diff -9.93 % ESV(MOD-bp) 29.5 ml EF(MOD-bp) 62.0 % SV(MOD-sp4) 52.0 ml SI(MOD-sp4) 30.8 ml/m\S\2 SV(MOD-sp2) 47.2 ml SI(MOD-sp2) 27.9 ml/m\S\2 SV(MOD-bp) 48.2 ml SI(MOD-bp) 28.5 ml/m\S\2 SV(sp4-el) 51.1 ml SI(sp4-el) 30.2 ml/m\S\2 SV(sp2-el) 49.9 ml SI(sp2-el) 29.5 ml/m\S\2 Doppler Measurements and Calculations MV E max viraj 83.9 cm/sec MV dec time 0.22 sec Ao V2 max 103.7 cm/sec Ao max PG 4.3 mmHg Ao max PG (full) 0.65 mmHg LV V1 max PG 3.7 mmHg LV V1 max 95.6 cm/sec PA V2 max 85.5 cm/sec PA max PG 2.9 mmHg PI max viraj 157.5 cm/sec PI max PG 9.9 mmHg PI dec slope 233.2 cm/sec\S\2 PI P1/2t 197.8 msec TR max viraj 306.3 cm/sec
[2017-06-04 15:50] VITALS: BP 130/72; PULSE 65; TEMP 36.9; O2SAT 93
[2017-06-04 16:00] VITALS: O2SAT 93
[2017-06-04] MEDS ORDERED: FUROSEMIDE INJ 40 MG in SYRINGE 0 ML IV ONE (16:00)
[2017-06-04] MEDS ORDERED: POTASSIUM CHLORIDE 20 MEQ TABCR PO ONE (16:00)
[2017-06-04 19:32] VITALS: BP 147/78; PULSE 65; TEMP 36.5; O2SAT 93
[2017-06-04] MEDS: METOPROLOL TARTRATE 25 MG TAB PO SCH (20:29)
[2017-06-04] MEDS: ATORVASTATIN 10 MG TAB PO SCH (20:29)
[2017-06-04] MEDS: CALCIUM 600MG + VIT D 400 IU TAB PO SCH (20:29)
[2017-06-04 23:01] VITALS: BP 126/69; PULSE 68; TEMP 36.7; O2SAT 92
[2017-06-05] VITALS (7 sets, daily range): BP systolic 119–149; BP diastolic 56–78; PULSE 61–88; TEMP 36.4–37.6; O2SAT 90–94
--- NOTE | 2017-06-05 00:45 | CARDIOLOGY CONSULTATION ---
DATE OF CONSULTATION: 06/04/2017 CONSULTATION REQUESTED BY: Satnam Perez DO REASON FOR CONSULTATION: Acute decompensated diastolic heart failure. HISTORY OF PRESENT ILLNESS: Mrs. Garcia is a very pleasant 81-year-old woman who presented to [facility] on 06/04/2017 with a complaint of abdominal bloating and weakness and fatigue. The patient states that her abdominal discomfort started about 2 weeks ago and she states she has not been feeling well since then. Her pacemaker has not been interrogated in some time, but was slightly interrogated in May and was found to be in [place] and was referred to Dr. Diez. She was seen by Dr. Diez on the and thought to be volume overloaded and started on p.r.n. p.o. Lasix at home. She states that since being started on Lasix, the patient really has not seen any change and she has not significantly diuresed. She has not had any more significant urine output and again this morning she felt a little short of breath and a little lightheaded and dizzy, became concerned and came into the Emergency Department. Otherwise, she states that she has been avoiding salt and has not been drinking any excess water. PAST SURGICAL HISTORY: 1. [employer] permanent pacemaker placement. Device at [place]. 2. Multiple colonoscopies. 3. Carpal tunnel surgery. 4. Tubal ligation. 5. Hernia repair. 6. Total hip replacement. 7. Appendectomy. 8. Tonsil and adenoidectomy. MEDICAL ILLNESSES: 1. Sick sinus syndrome, status post permanent pacemaker placement. Device at [place]. 2. Chronic sinusitis. 3. Hearing loss. 4. Dyslipidemia. FAMILY HISTORY: Noncontributory. SOCIAL HISTORY: Denies any alcohol, tobacco or recreational drug use. She is . 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 ALLERGIES: 1. LISINOPRIL. 2. ADHESIVE TAPE. MEDICATIONS AN OUTPATIENT: 1. Aspirin 81 mg daily. 2. Atenolol 25 mg b.i.d. 3. Atorvastatin 10 mg daily. 4. Diltiazem CD 240 mg daily. 5. Lasix 20 mg daily. 6. Esomeprazole daily. 7. Claritin daily. PHYSICAL EXAMINATION: VITALS: Temperature 36.9, pulse 65, respiratory rate 12, blood pressure 130/72. GENERAL: Awake, alert, oriented x3 in no acute distress. HEENT: Normocephalic, atraumatic. Pupils equal, round, and reactive to light and accommodation. Extraocular muscles intact. Anicteric sclerae. Moist mucous membranes. NECK: No JVD, no bruit. CARDIOVASCULAR: Regular. Positive S4. Normal S1 and S2. No S3. No murmurs or rubs. PULMONARY: Scant bibasilar crackles, no rhonchi or wheezing. ABDOMEN: Bowel sounds x4, soft. No rebound, guarding, or tenderness. No organomegaly. EXTREMITIES: No clubbing, cyanosis or edema. +2 pedal pulses bilaterally. SKIN: Warm and dry. IMPRESSION: 1. Acute decompensated diastolic heart failure. 2. Sick sinus syndrome, status post permanent pacemaker placement. Device at elective replacement indicator. RECOMMENDATIONS: It was my pleasure to see Mrs. Garcia in consultation today. From a cardiac standpoint, the patient is volume overloaded, so we will continue with diuresis and we will give her Lasix 40 mg IV x1 now and in the a.m. I will also repeat an echocardiogram to reevaluate her systolic function since she has not had one in quite some time and we will plan on proceeding with a generator change tomorrow. The patient will be made n.p.o. after midnight and further recommendations will be made afterwards.
[2017-06-05 05:59] LABS: HEMATOCRIT 37.3 % (37-47); HEMOGLOBIN 12.4 g/dL (12.0-16.0); MEAN CELL VOLUME 96.6 fL (80-100); MEAN CORPUSCULAR HEMOGLOBIN 32.1 pg (25-34); MEAN CORPUSCULAR HGB CONC 33.2 g/dl (32-36); MEAN PLATELET VOLUME 9.6 fL (7.4-10.4); PLATELET COUNT 163 K/uL (130-400); RED CELL DISTRIBUTION WIDTH CV 14.5 % (11.5-14.5); RED CELL DISTRIBUTION WIDTH SD 50.8 fL (36.4-46.3); WHITE BLOOD COUNT 4.39 K/uL (4.8-10.8)
[2017-06-05 06:38] LABS: CALCIUM 8.6 mg/dl (8.5-10.1); CREATININE 0.98 mg/dl (0.60-1.20); POTASSIUM 3.8 mmol/L (3.5-5.1)
[2017-06-05] MEDS: LORATADINE 10 MG TAB PO SCH (08:00)
[2017-06-05] MEDS: FUROSEMIDE INJ 40 MG in SYRINGE 0 ML IV SCH (08:00)
[2017-06-05] MEDS: CHOLECALCIFEROL 1000 INTER.UNIT TAB PO SCH (08:01)
[2017-06-05] MEDS: DILTIAZEM HCL 240 MG CAPCR PO SCH (08:01)
[2017-06-05] MEDS: CEROVITE ADV FORMULA TAB PO SCH (08:01)
[2017-06-05] MEDS: PANTOprazole SOD 40 MG TAB PO SCH (08:01)
[2017-06-05] MEDS: METOPROLOL TARTRATE 25 MG TAB PO SCH ×2 (08:02→21:26)
[2017-06-05] MEDS: CALCIUM 600MG + VIT D 400 IU TAB PO SCH ×2 (08:02→21:27)
[2017-06-05] MEDS: ACETAMINOPHEN 500 MG TAB PO SCH ×3 (08:03→21:27)
[2017-06-05] MEDS: POTASSIUM CHLORIDE 20 MEQ TABCR PO SCH (08:04)
[2017-06-05] MEDS ORDERED: POTASSIUM CHLORIDE 10 MEQ TABCR PO SCH (09:00)
[2017-06-05] MEDS ORDERED: FUROSEMIDE INJ 20 MG in SYRINGE 0 ML IV SCH (09:00)
[2017-06-05] MEDS ORDERED: LIDOCAINE HCL 1% 20 ML VIAL ONE (11:04)
[2017-06-05] MEDS ORDERED: BUPIVACAINE 0.5 % 5 MG/1 ML MPF 30ML VIAL ONE (11:05)
[2017-06-05] MEDS ORDERED: BACITRACIN 50000 UNIT VIAL ONE (11:05)
--- NOTE | 2017-06-05 11:37 | Pre Sedation Assessment ---
Pre Sedation Assessment General Date of Sedation: Jun 05, 2017. Vital Signs Past 12 Hours Date Time Temp Pulse Resp B/P (MAP) Pulse Ox O2 Delivery O2 Flow Rate FiO2 06/05/17 08:02 36.7 65 18 149/75 (99) 92 Room Air 06/05/17 08:00 Room Air 06/05/17 04:00 Room Air 06/05/17 03:49 36.7 70 16 149/78 (101) 94 Room Air 06/05/17 00:00 Room Air Review Cardiovascular: + bradycardia Lungs: lungs clear Pre-Sedation Airway Assessment Smoking Status: Never Smoker Hx of Sleep Apnea: No Hx of difficult intubation: No Short Thick Neck: No Thyro-mental Distance: < or =3 Finger Breadths Oral Cavity: Dentures Mallampati Classification: Class II ASA Classification: Class II NPO Status Date of Last Intake of Fluids: Jun 04, 2017 Time of Last Intake of Fluids: 2359 Date of Last Intake of Solids: Jun 04, 2017 Time of Last Intake of Solids: 1999 Procedure Planning Contraindications for Sedation: None Current Medications Reviewed: Yes Notes The planned sedation has been discussed with the patient. Informed Consent was obtained. I have identified the patient, determined the appropriateness of sedation and have assessed the patient immediately prior to the procedure. All medicine(s) and interventions are by my order.
--- NOTE | 2017-06-05 11:38 | History & Physical Bridge Note ---
H&P Re-Evaluation Bridge Note: I have examined the patient, reviewed the History & Physical and in the interval since the performance of the History & Physical I have noted the following changes of clinical significance:Pt successfully responded to IV diuresis and breathing is much better. She is for a dual chamber pacemaker generator change today.
[2017-06-05] MEDS ORDERED: CEFAZOLIN SOD 1 GM VIAL ONE (11:47)
[2017-06-05] MEDS ORDERED: MIDAZOLAM HCL 5 MG/ML 1 ML VIAL ONE (11:47)
[2017-06-05] MEDS ORDERED: FENTANYL CITRATE INJ 50 MCG/1 ML 2 ML VIAL ONE (11:47)
[2017-06-05] MEDS ORDERED: WATER, STERILE FOR INJ 10 ML VIAL ONE (11:49)
--- NOTE | 2017-06-05 12:37 | Post Sedation Assessment ---
Post Sedation Assessment General Date of Sedation Jun 05, 2017. Vital Signs: Vital Signs Past 12 Hours Date Time Temp Pulse Resp B/P (MAP) Pulse Ox O2 Delivery O2 Flow Rate FiO2 06/05/17 12:25 60 16 101/58 (72) 94 Nasal Cannula 3 06/05/17 11:44 36.7 70 16 134/75 (94) 94 Room Air 06/05/17 08:02 36.7 65 18 149/75 (99) 92 Room Air 06/05/17 08:00 Room Air 06/05/17 04:00 Room Air 06/05/17 03:49 36.7 70 16 149/78 (101) 94 Room Air Post Procedure Recovery Score Activity: (2) Moves 4 extremities * Respiration: (2) Deep breath/cough Circulation: (2) +/-20% PreAnes Value Consciousness: (2) Fully Awake Oxygen Saturation: (1) O2 needed for >90% Post Anesthesia Score: 9 Discharge Sedation Level of Care: Fast Track Phase II Post Sedation Plan On clinical assessment, the patient appears to have tolerated the sedation without complications. Patient is recovering as anticipated. Patient will continue to be monitored by nursing and may be discharged when sedation discharge criteria are met per below protocol. Upon Completions of procedure and additional 15 minutes continue every 5 minute vital signs and the P.A.R. score; then discharge to a Phase I or Fast Track to Phase II per the following guidelines: * Discharge Patient to appropriate Phase II area if PAR is 8 or greater or return to pre- procedure baseline. The post - procedure orders will be as directed. * If PAR score is less than 8 or not return to pre-procedure baseline then patient will follow Phase I monitoring till PAR is reached for Phase II. The Phase I may be done in procedure room or may call to secure a Phase I area. * If naloxone or flumazenil are used for reversal, hold in Phase I for an additional 60 -120 minutes before discharge to Phase II. Please call the Sedation Physician to re-evaluate and complete post-note for discharge to Phase II area. Do NOT discharge from procedure sedation or Phase 1 until post- sedation evaluation note is complete by procedure /sedation MD Sedation Discharge Instructions to be given to the patient at discharge to home.
--- NOTE | 2017-06-05 12:42 | [facility] Post Operative Brief Note ---
Immediate Operative Summary Operative Date Jun 05, 2017. Pre-Operative Diagnosis snd, ppm at jared Post-Operative Diagnosis same Procedure(s) Performed dual chamber rate responsive permanent pacemaker generator change Surgeon humberto guevara Civil Celebrant Surgeon(s) none Estimated Blood Loss minimal Findings See Below see offiical report Fluids (cc crystalloids) 100cc Specimens none Drains None Anesthesia Type IV Sedat Cons RN Only Complication(s) none Disposition Accompanied Pt To Recover: yes Disposition: PCU
--- NOTE | 2017-06-05 15:24 | Hospitalist Progress Note ---
Hospitalist Progress Note Date of Service Jun 05, 2017. (La Cui ., LINH-C) Subjective Pt evaluation today including: conversation w/ patient, conversation w/ family (at bedside), physical exam, chart review, lab review, review of inpatient medication list Pain: None PO Intake: Tolerating PO diet Voiding: no voiding problems Patient reports feeling well. She denies any pain at her surgical site and tolerated her lunch well. She states her abdominal pain and nausea have resolved, as well as her shortness of breath. She reports having good urinary output with the IV Lasix. The patient denies fevers, chills, sweats, chest pain , palpitations, claudication, cough, wheezing, shortness of breath, nausea, vomiting, abdominal pain, dysuria, hematuria, urinary retention, paralysis, weakness, numbness and tingling. Additional Comments: See HPI for pertinent positives and negatives. All other systems reviewed and negative. (La Ciu ., LINH-C) Objective Vital Signs Date Time Temp Pulse Resp B/P (MAP) Pulse Ox O2 Delivery O2 Flow Rate FiO2 06/05/17 12:36 60 16 106/60 (75) 94 Nasal Cannula 3 06/05/17 12:25 60 16 101/58 (72) 94 Nasal Cannula 3 06/05/17 12:00 Room Air 06/05/17 11:44 36.7 70 16 134/75 (94) 94 Room Air 06/05/17 08:02 36.7 65 18 149/75 (99) 92 Room Air 06/05/17 08:00 Room Air 06/05/17 04:00 Room Air 06/05/17 03:49 36.7 70 16 149/78 (101) 94 Room Air 06/05/17 00:00 Room Air 06/04/17 23:01 36.7 68 17 126/69 (88) 92 Room Air 06/04/17 20:00 Room Air 06/04/17 19:32 36.5 65 20 147/78 (101) 93 Nasal Cannula 06/04/17 16:00 93 Room Air 06/04/17 15:50 36.9 65 16 130/72 (91) 93 Room Air (La Cui PA-C) Physical Exam Notes: General appearance: +Obese. Well-developed, well-nourished, no apparent distress Head: Normocephalic, atraumatic Eyes: Normal inspection, PERRL, EOMI ENT: Normal ENT inspection, hearing grossly normal, pharynx normal Neck: Supple, no JVD, trachea midline Respiratory/Chest: +Decreased breath sounds in bases bilaterally. Lungs clear to auscultation, no respiratory distress Cardiovascular: Regular rate & rhythm, no gallop, no murmur Abdomen/GI: Normal bowel sounds, non-tender, soft Extremities/Musculoskeletal: +1+ pitting edema. Normal inspection, no calf tenderness Neurological/Psych: Alert, normal mood/affect, oriented x 3 Skin: Normal color, warm/dry, no rash (La Cui ., PA-C) Laboratory Results Last 24 Hours Test 06/05/17 05:16 White Blood Count 4.39 K/uL Red Blood Count 3.86 M/uL Hemoglobin 12.4 g/dL Hematocrit 37.3 % Mean Corpuscular Volume 96.6 fL Mean Corpuscular Hemoglobin 32.1 pg Mean Corpuscular Hemoglobin Concent 33.2 g/dl RDW Standard Deviation 50.8 fL RDW Coefficient of Variation 14.5 % Platelet Count 163 K/uL Mean Platelet Volume 9.6 fL Sodium Level 139 mmol/L Potassium Level 3.8 mmol/L Chloride Level 105 mmol/L Carbon Dioxide Level 25 mmol/L Anion Gap 9.0 mmol/L Blood Urea Nitrogen 19 mg/dl Creatinine 0.98 mg/dl Est Creatinine Clear Calc Drug Dose 38.6 ml/min Estimated GFR () 63.1 Estimated GFR (Non- 54.5 BUN/Creatinine Ratio 19.8 Random Glucose 89 mg/dl Calcium Level 8.6 mg/dl Magnesium Level 2.1 mg/dl (La Cui ., PA-C) Diagnostic Results Interpretation Summary * Name: MARY STUART Study Date: 06/04/2017 10:30 AM BP: 171/89 mmHg * Patient Location: [facility] HR: 64 * : 1935 (M/d/yyyy) Gender: Female Height: 59 in * Age: 81 yrs Ethnicity: [place] Weight: 163 lb * Ordering Physician: La Cui * Referring Physician: Self, Referred * Performed By: Keiry Avalos RDCS * * Reason For Study: Congestive Heart Failure * BSA: 1.7 m2 * -- Conclusions -- * Normal LV chamber size and wall thickness. * Normal LV systolic function, EF 60-65%. * No segmental left ventricular wall motion abnormalities are noted. * Grade II diastolic dysfunction. * Aortic valve sclerosis mild, without significant aortic valvular stenosis. * Mild mitral regurgitation. * Moderate tricuspid regurgitation. Procedure Details * A complete two-dimensional transthoracic echocardiogram was performed (2D, M- mode, Doppler and color flow Doppler). Left Ventricle * The left ventricle is normal in size. * There is normal left ventricular wall thickness. * Ejection Fraction = 60-65%. * Left ventricular systolic function is normal. * No segmental left ventricular wall motion abnormalities are noted. * The left ventricular wall motion is normal. Right Ventricle * The right ventricular cavity size is normal (basal dimension <4.2 cm in right ventricular apical 4-chamber view). * There is a pacemaker lead in the right ventricle. * The right ventricular systolic function is normal as assessed by tricuspid annular plane systolic excursion (TAPSE) (normal >1.5 cm). Atria * The left atrial size is normal. * Right atrial size is normal. * No ASD detected; PFO is not assessed. Mitral Valve * There is mild mitral annular calcification. * There is no mitral valve stenosis. * There is mild mitral regurgitation. Tricuspid Valve * The tricuspid valve anatomy is normal. * There is no tricuspid stenosis. * There is moderate tricuspid regurgitation. Aortic Valve * The aortic valve is trileaflet. * Aortic valve sclerosis mild, without significant aortic valvular stenosis. * There is no significant aortic regurgitation. Pulmonic Valve * The pulmonary valve is not well seen, but the Doppler examination is normal without significant regurgitation or stenosis. Great Vessels * The aortic root is normal size. Pericardium/Pleural * There is no pericardial effusion. Left Ventricular Diastolic Function * Diastolic dysfunction, Grade II (pseudonormalization pattern). (La Cui ., AIDAN) Assessment and Plan 81 y/o female with a history of HTN, HLD, s/p pacemaker, peripheral edema, and h /o TIA 2014 who presented to the ED on 06/04 with nausea, abdominal pain, weakness and fatigue. Pt afebrile, VSS on arrival. Non-hypoxic. CXR shows pulmonary edema. CT abdomen/pelvis largely unremarkable. Gallbladder ultrasound unremarkable. EKG no ischemic changes, ventricular paced. Labs grossly unremarkable. Pt given Zofran and Maalox in ED with relief. Pulmonary edema, peripheral edema, no previous h/o CHF--improving -Admit to telemetry. No acute events overnight, pt paced with HR in 60s -Daily weights, strict I's & O's -UO 2650 cc, net balance -2550 cc 06/04 -Lasix 40 mg IV qd per cardio -Low sodium diet -Repeat echocardiogram with LVEF of 60-65%. No WMA. Grade II diastolic dysfunction -Continue KCl 40 mEq PO qd Pacemaker battery at end of life--resolved, s/p generator change 06/05 -Pacemaker due to sick sinus syndrome -Cardiology consulted, appreciate recs: Lasix increased to 40 mg IV qd. HTN, HLD--stable -Continue diltiazem 240 mg PO qd, and Lipitor 10 mg PO qd -Per pt's med list, she is taking both Lipitor and Crestor. She confirms taking both. Will continue just Lipitor for now -Change atenolol to Lopressor 12.5 mg PO BID for now as shorter acting in case pacemaker fails prior to procedure Nausea, abdominal pain--resolved -CT abdomen/pelvis with distention of gallbladder. Trace peripancreatic fat infiltration suggested along dorsum of body-tail. No other acute findings -Gallbladder ultrasound unremarkable. No cholelithiasis or biliary ductal dilatation -Lipase and amylase WNL, LFTs WNL -Zofran prn and Protonix 40 mg PO qd DVT prophylaxis -Heparin 5000 units SC q12h -TAMIA noyola and SCDs Code Status -Level I, FULL RESUSCITATION STATUS (La Cui ., AIDAN) Reviewed: Pt Seen/Exam by Me (Christine Reardon MD) History Physician Branch Sales Manager supervision Note: I interviewed and examined the patient. Discussed with LINH Cui and agree with findings and plan as documented in the note. Any exceptions or clarifications are listed here: Patient feeling great. Had her pacemaker battery changed out today. She denies any shortness of breath. No chest pain. No other complaints. She is lying flat in bed when I saw her. Telemetry since battery change out shows normal sinus rhythm in the 60s with paced at times Gen: AAOx3, NAD HEENT: anicteric sclerae, EOMI CV: RRR no mgr nl S1S2 Pulm: CTAB no wcr Abd: +BS soft NT ND no masses or hernias Ext: no edema, 2+ DP pulses Skin: no rashes, warm/dry, left anterior chest in the subclavian space with pacemaker box palpable with overlying incision with Dermabond in place, no drainage or erythema Neuro: full strength throughout Patient is an 81-year-old female with history of chronic diastolic CHF, SSS status post PPM, HTN, HL, lower extremity edema, and history of TIA, who presented with weakness, generalized abdominal pain, and lower extremity swelling. Is being treated for acute on chronic diastolic CHF. She also required change out of her pacer battery. -Diuresing nicely and feels better -We will discharge to home likely in the morning on Lasix 40 mg p.o. once daily -Appreciate cardiology consultation -Abdominal pain is resolved and unclear what the etiology was-there was some nonspecific findings of the pancreas on CT but with normal lipase making pancreatitis not likely Documented By: Christine Reardon (Christine Reardon MD)
--- NOTE | 2017-06-05 16:24 | Cardiology Follow-Up ---
Subjective Subjective Date of Service: Jun 05, 2017. Pt evaluation today including: conversation w/ patient, conversation w/ family , physical exam, chart review, lab review, review of studies, review of inpatient medication list Additional Details: Pt seen and examined with family at bedside. States that she feels well. Denies cp, sob, palpitations, lightheadedness or dizziness. Some slight discomfort at pocket site. Problem List Medical Problems: (1) CHF (congestive heart failure) Status: Acute (2) Diarrhea Status: Acute (3) Facial numbness Status: Acute (4) Generalized weakness Status: Acute (5) Laceration of occipital scalp Status: Acute (6) Pacemaker at end of battery life Status: Acute (7) Pleural effusion Status: Acute (8) Thyroid nodule Status: Acute Review of Systems Respiratory: No see HPI, No cough, No sputum, No wheezing, No shortness of breath, No dyspnea on exertion, No dyspnea at rest, No hemoptysis, No problem reported Cardiac: No see HPI, No chest pain, No orthopnea, No PND, No edema, No claudication, No palpitations, No problem reported Objective Vital Signs Last Vital Signs Documentation Date Time Temp Pulse Resp B/P (MAP) Pulse Ox O2 Delivery O2 Flow Rate FiO2 06/05/17 16:01 36.4 61 16 130/56 (80) 91 Room Air 06/05/17 12:36 3 Physical Exam: General Appearance: WD/WN, no apparent distress Eyes: bilateral eyes normal inspection, bilateral eyes PERRL, bilateral eyes EOMI ENT: normal ENT inspection, hearing grossly normal, pharynx normal Neck: supple, no adenopathy, thyroid normal, no JVD, no carotid bruits, trachea midline Respiratory/Chest: chest non-tender, no respiratory distress, no accessory muscle use, + crackles (scant basilar crackles on left only) Cardiovascular: regular rate, rhythm, no edema, no JVD, no murmur, + gallop/S4 Abdomen: normal bowel sounds, non tender, soft, no organomegaly, no pulsatile mass Extremities: normal range of motion, non-tender, normal inspection, no pedal edema, no calf tenderness Neurologic/Psychiatric: in home aide II-XII nml as tested, no motor/sensory deficits, alert, normal mood/affect, oriented x 3 Skin: normal color, warm/dry, no rash Lymphatic: no adenopathy Assessment and Plan 1. pacemaker KARLEE s/p generator change f/u with Dr. Diez as outpatient 2. acute diastolic heart failure pt does not examine as significantly volume overloaded has diuresed over 3L since admission offered the patient to be discharged with po lasix pt refused, stating she's not comfortable taking po lasix since it didn't work the first time explained that she was significantly volume overloaded and on very low dose of lasix prior to admission but believe she will respond well to lasix 40mg daily for now patient states she'd prefer to receive IV lasix in hospital will give dose of IV lasix along with po potassium now ok to d/c tele from cardiac standpoint likely d/c to home in AM
[2017-06-05] MEDS ORDERED: FUROSEMIDE INJ 40 MG in SYRINGE 0 ML IV ONE (16:45)
[2017-06-05] MEDS ORDERED: POTASSIUM CHLORIDE 20 MEQ TABCR PO ONE (16:45)
[2017-06-05] MEDS ORDERED: ASPIRIN 81 MG ECTAB PO SCH (21:00)
[2017-06-05] MEDS: ATORVASTATIN 10 MG TAB PO SCH (21:27)
[2017-06-05] MEDS: HEPARIN SOD 5000 UNIT/0.5 ML CARP SQ SCH (21:28)
[2017-06-06 03:35] VITALS: BP 150/75; PULSE 59; TEMP 37; O2SAT 92
[2017-06-06 06:21] LABS: HEMATOCRIT 38.4 % (37-47); MEAN CELL VOLUME 95.3 fL (80-100); MEAN CORPUSCULAR HEMOGLOBIN 32.3 pg (25-34); MEAN CORPUSCULAR HGB CONC 33.9 g/dl (32-36); MEAN PLATELET VOLUME 9.3 fL (7.4-10.4); PLATELET COUNT 181 K/uL (130-400); RED CELL DISTRIBUTION WIDTH CV 14.3 % (11.5-14.5); WHITE BLOOD COUNT 5.76 K/uL (4.8-10.8)
[2017-06-06 06:54] LABS: CALCIUM 9.2 mg/dl (8.5-10.1); CREATININE 1.06 mg/dl (0.60-1.20); POTASSIUM 4.1 mmol/L (3.5-5.1)
[2017-06-06 07:43] VITALS: BP 128/54; PULSE 62; TEMP 37; O2SAT 92
[2017-06-06] MEDS: FUROSEMIDE INJ 40 MG in SYRINGE 0 ML IV SCH (08:23)
[2017-06-06] MEDS: LORATADINE 10 MG TAB PO SCH (08:24)
[2017-06-06] MEDS: POTASSIUM CHLORIDE 20 MEQ TABCR PO SCH (08:24)
[2017-06-06] MEDS: DILTIAZEM HCL 240 MG CAPCR PO SCH (08:24)
[2017-06-06] MEDS: CHOLECALCIFEROL 1000 INTER.UNIT TAB PO SCH (08:24)
[2017-06-06] MEDS: ACETAMINOPHEN 500 MG TAB PO SCH (08:25)
[2017-06-06] MEDS: CALCIUM 600MG + VIT D 400 IU TAB PO SCH (08:25)
[2017-06-06] MEDS: CEROVITE ADV FORMULA TAB PO SCH (08:26)
[2017-06-06] MEDS: METOPROLOL TARTRATE 25 MG TAB PO SCH (08:26)
[2017-06-06] MEDS: PANTOprazole SOD 40 MG TAB PO SCH (08:26)
[2017-06-06] MEDS: HEPARIN SOD 5000 UNIT/0.5 ML CARP SQ SCH (08:35)
--- NOTE | 2017-06-06 09:35 | Cardiology Follow-Up ---
Subjective Subjective Date of Service: Jun 06, 2017. Pt evaluation today including: conversation w/ patient, physical exam, chart review, lab review, review of studies, review of inpatient medication list Additional Details: Pt seen and examined, states that she feels well. Denies cp, sob, palpitations, lightheadedness or dizziness. Tele reviewed: sinus rhythm without arrhythmia or significant ectopy, Problem List Medical Problems: (1) CHF (congestive heart failure) Status: Acute (2) Diarrhea Status: Acute (3) Facial numbness Status: Acute (4) Generalized weakness Status: Acute (5) Laceration of occipital scalp Status: Acute (6) Pacemaker at end of battery life Status: Acute (7) Pleural effusion Status: Acute (8) Thyroid nodule Status: Acute Review of Systems Respiratory: No see HPI, No cough, No sputum, No wheezing, No shortness of breath, No dyspnea on exertion, No dyspnea at rest, No hemoptysis, No problem reported Cardiac: No see HPI, No chest pain, No orthopnea, No PND, No edema, No claudication, No palpitations, No problem reported Objective Vital Signs Last Vital Signs Documentation Date Time Temp Pulse Resp B/P (MAP) Pulse Ox O2 Delivery O2 Flow Rate FiO2 06/06/17 08:00 Room Air 06/06/17 07:43 37.0 62 18 128/54 (78) 92 06/05/17 12:36 3 Physical Exam: General Appearance: WD/WN, no apparent distress Eyes: bilateral eyes normal inspection, bilateral eyes PERRL, bilateral eyes EOMI ENT: normal ENT inspection, hearing grossly normal, pharynx normal Neck: supple, no adenopathy, thyroid normal, no JVD, no carotid bruits, trachea midline Respiratory/Chest: chest non-tender, lungs clear, normal breath sounds, no respiratory distress, no accessory muscle use Cardiovascular: regular rate, rhythm, no edema, no JVD, no murmur, + gallop/S4 Abdomen: normal bowel sounds, non tender, soft, no organomegaly, no pulsatile mass Extremities: normal range of motion, non-tender, normal inspection, no pedal edema, no calf tenderness Neurologic/Psychiatric: color repairer II-XII nml as tested, no motor/sensory deficits, alert, normal mood/affect, oriented x 3 Skin: normal color, warm/dry, no rash Lymphatic: no adenopathy Assessment and Plan 1. pacemaker KARLEE s/p generator change f/u with Dr. Diez as outpatient 2. acute diastolic heart failure pt does not examine as volume overloaded intravascularly depleted by numbers no need for further diuresis would d/c home with previous prn lasix order reviewed signs and symptoms of volume overload with patient f/u with Dr. Diez as outpatient as scheduled ok to d/c from cardiac standpoint
[2017-06-06 10:54] VITALS: BP 125/65; PULSE 60; TEMP 36.9; O2SAT 94
[2017-06-06] MEDS ORDERED: FRS/40 PO (12:13)
[2017-06-06] MEDS ORDERED: POTA1CAP2 PO (12:13)
--- NOTE | 2017-06-06 12:21 | Discharge Instructions ---
Discharge Instructions Date of Service Jun 06, 2017. Admission Reason for Admission: Chf (Congestive Heart Failure) Discharge Discharge Diagnosis / Problem: Acute diastolic congestive heart failure, pacemaker generator end of life Discharge Goals Goal(s): Decrease discomfort, Improve function, Diagnostic testing, Therapeutic intervention Activity Recommendations Activity Limitations: resume your previous activity (as tolerated) . Instructions / Follow-Up Instructions / Follow-Up You were admitted to the hospital with shortness of breath and weakness, as well with your pacemaker batter at end of life. You were found to have fluid overload due to acute congestive heart failure, which was treated with an IV diuretic called Lasix. Your pacemaker generator was also changed. You have diuresed well and are no longer fluid overloaded and therefore stable for discharge. Medications: *Please take furosemide (Lasix) 40 mg daily. Take this every day until you follow up with Dr. Diez next week, who can then change the medication if needed. *Please take potassium chloride 20 mEq (2 capsules of your 10 meq caps) daily with the Lasix. *Continue your other home medications as prescribed. Recommendations: *It is recommended that you weigh yourself daily after you go to the bathroom but before you eat breakfast. Keep track of your weights. If you have a sudden weight gain of 2-3 pounds, call your trolley car mechanic. *You have received an education packet with further details about your diagnosis , including restricting your sodium (no more than 2 grams a day). Follow up: *You have been scheduled to follow up with your primary care provider next week. *Please keep your cardiology appointment for June 12. Please seek medical attention if you experience fevers, chills, sweats, dizziness/lightheadedness, loss of consciousness, chest pain, shortness of breath, nausea, vomiting, numbness or tingling. Call your Primary Care doctor if any of the following symptoms or problems start or get worse: * Shortness of breath or difficulty breathing * Wake up at night short of breath * Chest pain * Cough * Swelling of your hands, feet, or legs * More fatigued or tired with your normal activity * Palpitations - sudden fast heart beats WEIGHT * Weigh yourself every morning after using the bathroom. * Use the same scale. * Wear the same amount of clothing. * Write your weight down on a chart. * Call your Primary Care doctor if you gain more than 2-3 pounds in 1-2 days. MEDICATIONS * Use this discharge instruction sheet for medication instructions. * Take your medications at the time your doctor ordered. * Do not skip a dose of your medicines. * If you miss a dose of medicine, take it as soon as possible, but DO NOT DOUBLE A DOSE unless instructed by your doctor. * Read your medicine information when you get home. * Know all of the side effects of your medicine. If in doubt, ask your pharmacist * Call your Primary Care doctor's office if you have any side effects. * Be sure all of your doctors know what medicine and herbs you take (including cold, flu, and herbal medicine). Take the following with you to your follow-up doctor appointments: * Weight Chart * Medication List * List of questions Do not drink excessive alcohol, beer or wine. Current Hospital Diet Patient's current hospital diet: AHA Diet (Heart Healthy), Low Sodium Diet (2gm Na) Discharge Diet Recommended Diet: AHA Diet (Heart Healthy), Low Sodium Diet (2gm Na) Fluid Restriction: 1800 ml (7 cups) Procedures Procedures Performed: dual chamber rate responsive permanent pacemaker generator change Echocardiogram Chest xray CT abdomen/pelvis Gallbladder ultrasound Pending Studies Studies pending at discharge: no Medical Emergencies . Who to Call and When: Call 911 or go to the Emergency Room if: * If at any time you feel your situation is an emergency * You have tightness or pain in your chest that does not go away with rest or Nitroglycerin * You are very short of breath even with rest . Non-Emergent Contact Non-Emergency issues call your: Primary Care Provider, Bundling Machine Operator Call Non-Emergent contact if: temperature is above 100.5, your pain is not controlled, your pain is worsening, your pain is unusual for you, you have any medication questions . Past History Medical & Surgical History: (1) CHF (congestive heart failure) (2) Pacemaker at end of battery life . "Provider Documentation" section prepared by La Cui. .
[2017-06-06 12:31] VITALS: BP 125/65; PULSE 60; TEMP 36.9; O2SAT 94
[2017-06-06] MEDS ORDERED: POTA10CA28 PO (12:35)
--- NOTE | 2017-06-06 15:07 | Discharge Summary ---
Discharge Summary Date of Service Jun 06, 2017. Discharge Summary Admission Date: Jun 04, 2017 at 11:08 Discharge Date: Jun 06, 2017 Discharge Disposition: Home Principal Diagnosis: Acute diastolic CHF, pacemaker generator change Problems/Secondary Diagnoses: HTN HL SSS s/p pacemaker peripheral edema h/o TIA 2014 nausea abdominal pain Hypokalemia Immunizations: Have You Had Influenza Vaccine: Yes History of Tetanus Vaccine?: No History of Pneumococcal: Yes History of Hepatitis B Vaccine: No Procedures: Echocardiogram: * -- Conclusions -- * Normal LV chamber size and wall thickness. * Normal LV systolic function, EF 60-65%. * No segmental left ventricular wall motion abnormalities are noted. * Grade II diastolic dysfunction. * Aortic valve sclerosis mild, without significant aortic valvular stenosis. * Mild mitral regurgitation. * Moderate tricuspid regurgitation. CT abdomen/pelvis Gallbladder ultrasound Chest x-ray Consultations: Cardiology Medication Reconciliation New Medications: Furosemide (Lasix) 40 Mg Tab 40 MG PO DAILY for 30 Days, #30 TAB Changed Medications: Potassium Chloride (Micro-K Ext Rel) 10 Meq Capcr 20 MEQ PO DAILY for 30 Days, #60 CAP (Changed from: 10 MEQ) TAKE WITH LASIX Continued Medications: Acetaminophen (Tylenol) 500 Mg Tab 1000 MG PO TID, TAB Aspirin Enteric Coated (Ecotrin Or Generic) 81 Mg Tab 81 MG PO HS, TAB Atenolol (Tenormin) 25 Mg Tab 25 MG PO BID, TAB Atorvastatin (Lipitor) 10 Mg Tab 10 MG PO HS Calcium Carbonate-Vitamin D W/ (Caltrate 600 Plus) 1 Tab Tab 1 TAB PO BID, TAB Cholecalciferol (Vitamin D3) 1,000 Unit Tab 1000 UNITS PO QAM for 90 Days, TAB 3 Refills Diltiazem Hcl (Diltiazem Cd) 240 Mg Capcr 240 MG PO QAM, CAP Esomeprazole Magnesium (Nexium) 20 Mg Cap 20 MG PO DAILY, CAP Glucosamine-Chondroitin (Glucosamine/Chondroitin T) 1 Tab Tab 1 TAB PO BID Loratadine (Claritin) 10 Mg Tab 10 MG PO DAILY Multiple Vitamins W/ Minerals (Centrum Silver Adult 50+) 1 Tab Tab 1 TAB PO DAILY [place]-3 Fatty Acids (Fish Oil) 1,200 Mg Cap 2400 MG PO QAM Discontinued Medications: Furosemide (Furosemide) 20 Mg Tab 20 MG PO DAILY Rosuvastatin Calcium (Crestor) 5 Mg Tab 5 MG PO QDD, TAB Discharge Exam Patient reports feeling well. She denies any shortness of breath, weakness or fatigue. She denies chest pain and is eager for discharge. Constitutional: No fever, No chills, No sweats Eyes: No worsening of vision, No eye pain, No diplopia ENT: No hearing loss, No nasal symptoms, No trouble swallowing Respiratory: No cough, No wheezing, No shortness of breath Cardiovascular: No chest pain, No claudication, No palpitations Abdomen: No pain, No nausea, No vomiting Musculoskeletal: No joint pain, No muscle pain, No swelling Genitourinary - Female: No dysuria, No urinary retention, No hematuria Neurologic: No paralysis, No weakness, No numbness/tingling Integumentary: No rash, No itch, No color change General appearance: +Obese. Well-developed, well-nourished, no apparent distress Head: Normocephalic, atraumatic Eyes: Normal inspection, PERRL, EOMI ENT: Normal ENT inspection, hearing grossly normal, pharynx normal Neck: Supple, no JVD, trachea midline Respiratory/Chest: Lungs clear to auscultation, normal breath sounds, no respiratory distress Cardiovascular: Regular rate & rhythm, no gallop, no murmur Abdomen/GI: Normal bowel sounds, non-tender, soft Extremities/Musculoskeletal: Normal inspection, no calf tenderness, no pedal edema Neurological/Psych: Alert, normal mood/affect, oriented x 3 Skin: Normal color, warm/dry, no rash Hospital Course 81 y/o female with a history of HTN, HLD, s/p pacemaker, peripheral edema, and h /o TIA 2014 who presented to the ED on 06/04 with nausea, abdominal pain, weakness and fatigue. Pt afebrile, VSS on arrival. Non-hypoxic. CXR shows pulmonary edema. CT abdomen/pelvis largely unremarkable. Gallbladder ultrasound unremarkable. EKG no ischemic changes, ventricular paced. Labs grossly unremarkable. Pt given Zofran and Maalox in ED with relief. Acute diastolic CHF--resolving -Admit to telemetry. No acute events overnight, pt paced with HR in 60s -Daily weights, strict I's & O's -UO 2200 cc, net balance - 1685 on 06/05. Lost total of 4L since admission -Received IV Lasix while inpt, d/c with Lasix 40 mg PO qd until f/u with cardiology next week -Low sodium diet -Repeat echocardiogram with LVEF of 60-65%. No WMA. Grade II diastolic dysfunction -D/C with KCl 20 mEq PO qd to take w/Lasix Pacemaker battery at end of life--resolved, s/p generator change 06/05 -Pacemaker due to sick sinus syndrome -Cardiology consulted, appreciate recs: No evidence of fluid overload, stable from cardiac standpoint. HTN, HLD--stable -Continue diltiazem 240 mg PO qd, and Lipitor 10 mg PO qd -Per pt's med list, she is taking both Lipitor and Crestor. She confirms taking both. Will continue just Lipitor for now -Placed on Lopressor prior to generator change as was shorter acting, d/c back on home atenolol Nausea, abdominal pain--resolved -CT abdomen/pelvis with distention of gallbladder. Trace peripancreatic fat infiltration suggested along dorsum of body-tail. No other acute findings -Gallbladder ultrasound unremarkable. No cholelithiasis or biliary ductal dilatation -Lipase and amylase WNL, LFTs WNL -Zofran prn and Protonix 40 mg PO qd DVT prophylaxis -Heparin 5000 units SC q12h -TAMIA noyola and SCDs Code Status -Level I, FULL RESUSCITATION STATUS Total Time Spent: Greater than 30 minutes This includes examination of the patient, discharge planning, medication reconciliation, and communication with other providers. Discharge Instructions Please refer to the electronic Patient Visit Report (Discharge Instructions) for additional information. Follow-Up With PCP within 1-2 weeks With cardiology on Sunday as scheduled Additional Copies To Odette Monteiro PA-C Reviewed: Pt Seen/Exam by Tx History Physician Copy Technician supervision Note: I interviewed and examined the patient. Discussed with LINH Cui and agree with findings and plan as documented in the note. Any exceptions or clarifications are listed here: Patient feeling great. Had her pacemaker battery changed out yesterday. She denies any shortness of breath. No chest pain. No other complaints. Vital signs reviewed Gen: AAOx3, NAD HEENT: anicteric sclerae, EOMI CV: RRR no mgr nl S1S2 Pulm: CTAB no wcr Abd: +BS soft NT ND no masses or hernias Ext: no edema, 2+ DP pulses Skin: no rashes, warm/dry, left anterior chest in the subclavian space with pacemaker box palpable with overlying incision with Dermabond in place, no drainage or erythema Neuro: full strength throughout Patient is an 81-year-old female with history of chronic diastolic CHF, SSS status post PPM, HTN, HL, lower extremity edema, and history of TIA, who presented with weakness, generalized abdominal pain, and lower extremity swelling. She had no cause of her abdominal pain, imaging or blood work. She was treated for acute on chronic diastolic CHF with IV Lasix. She also required change out of her pacer battery. -Diuresing nicely and feels better, abdominal pain and nausea resolved after diuresis -We will discharge to home on Lasix 40 mg p.o. once daily at least until she sees her seed and fertilizer specialist in follow-up next week -Appreciate cardiology consultation -Abdominal pain is resolved and unclear what the etiology was-there was some nonspecific findings of the pancreas on CT but with normal lipase making pancreatitis not likely Documented By: Christine Reardon
--- NOTE | 2017-06-14 08:06 | OPERATIVE REPORT ---
DATE OF OPERATION: 06/05/2017 PREOPERATIVE DIAGNOSES: Sinus node dysfunction and pacemaker at elective replacement indicator. POSTOPERATIVE DIAGNOSES: Same. PROCEDURE: Dual-chamber rate responsive permanent pacemaker generator change. SURGEON: Dr. Concepcion Diez. ASSISTANTS: None. ANESTHESIA: Monitored conscious sedation administered under my supervision by Yony Forrest. Start time of 11:56, end time of 12:24. Total of 3 mg of Versed and 75 mcg of fentanyl. IV FLUIDS: 100 mL ANTIBIOTICS: 1 gram of Ancef. BLOOD LOSS: Less than 5 mL COMPLICATIONS: None. CONDITION: Stable. URINE OUTPUT: Not applicable. SPECIMENS: None. FINDINGS: See below. DRAINS: None. INDICATIONS: This is an 81-year-old female who has a past medical history for sinus node dysfunction where she got a pacemaker on 01/31/2008, hyperlipidemia, acute diastolic heart failure since the pacemaker tripped to VVI pacing when it tripped to KARLEE. The patient was recommended a generator change since the device is at KARLEE. CONSENT: Consent was obtained prior to the patient going into the electrophysiology lab. The patient was informed of risks, benefits and alternatives to the procedure. Risks include but not limited to sudden cardiac , cardiac arrhythmias, vascular accident, myocardial infarction, bleeding and infection. The patient understood these risks and agreed to the procedure as planned and informed consent was obtained. DESCRIPTION OF PROCEDURE: The patient was brought into electrophysiology lab in a fasting state. She was connected to continuous ekg monitor. A timeout was performed to ensure the patient identity and procedure correctly. The patient was prepped and draped over the left infraclavicular space in normal surgical standard fashion. Moderate conscious sedation was given throughout the procedure for the patient's comfort level under my supervision. [place] precautions were maintained throughout the procedure. 10 mL of 1% lidocaine-bupivacaine mixture were given over the prior surgical incision and incision was made over the prior surgical incision. Blunt dissection was performed down to the prior generator. The capsule was disrupted using iris scissors and the generator was freed from the capsule. The capsule was disrupted inferiorly and caudally to allow for new blood flow. The leads were tested intraoperatively, see below for results. The pocket was then flushed with copious amounts of bacitracin saline wash and inspected for hemostasis. The new pulse generator was attached to the leads, making sure that the pins were in appropriate position, passed set screws and set screws were all tightened. Pulse generator was then placed in the pocket, making sure that the leads were lying flat beneath the device. The incision was closed in 3-layer fashion with 2-0 Vicryl interrupted suture, followed by 3-0 Vicryl interrupted suture, followed by a 4-0 Monocryl running stitch, and Dermabond was applied. EQUIPMENT: 1. Explanted generator is an [id number], serial #[id number], implanted 01/31/2008. SAWMILL TALLY CLERK on 05/17/2017 and voltage of 2.61. 2. The new pulse generator is a [employer] Adapta [id number], serial #[id number]. 3. Right atrial lead model number 5554-45 cm, serial #[id number], implanted 04/16/1998. 4. Right ventricular lead model number 5054-52, serial #[id number], implanted 04/16/1998. INTRAOPERATIVE TESTIN. Right atrial lead: P-wave 3.2 millivolts, impedance 1136 ohms, threshold 0.4 volts at 0.3 milliamps. 2. Right ventricular lead: R-wave 6.7 millivolts, impedance 889 ohms, threshold 0.7 volts at 0.8 milliamps. FINAL MEASUREMENTS THROUGH THE DEVICE: 1. Right atrial lead: P-waves 4 millivolts, impedance 1117 ohms, threshold 0.5 volts at 0.4 milliseconds. 2. Right ventricular lead: R-waves 8 millivolts, impedance 850 ohms, threshold 0.75 volts at 0.4 milliseconds. FINAL PARAMETERS: MVP-R 60/130. Right atrial amplitude of 1.5 volts, pulse width 0.4 milliseconds, sensitivity 0.5 millivolts. Right ventricular amplitude of 1.5 volts, pulse width 0.4 milliseconds, sensitivity 2.8 millivolts. IMPRESSION: Successful dual-chamber rate responsive implantable permanent pacemaker generator change secondary to device at elective replacement indicator and sinus node dysfunction. PLAN: Monitor the patient post sedation. She cannot do any heavy lifting with the left arm for 2 weeks. She can shower tomorrow, let water run over the incision. She can continue her home medications. She should have device and wound check in 1 week's time in our [facility] office, and from an EP standpoint, she is okay for discharge from the hospital. I attest to the content of the Intraoperative Record and any orders documented therein. Any exception s are noted below.
== END 2017-06-06 14:09 | disposition home or self-care (01) | DRG 258 ==
LOC: C.EDB 06:08 → EDBEDREQ 10:15 → ENRESERV 10:19 → C.2T 11:08
PROVIDERS: ADMIT Internal Medicine; ATTEND Family Medicine
PROC: 0JH63PZ Insertion of Cardiac Rhythm Related Device into Chest Subcutaneous Tissue and Fascia, Percutaneous Approach (ICD-10-PCS; principal; 2017-06-04)
PROC: 0JPT3PZ Removal of Cardiac Rhythm Related Device from Trunk Subcutaneous Tissue and Fascia, Percutaneous Approach (ICD-10-PCS; principal; 2017-06-04)
DX: I13.0 Hypertensive heart and chronic kidney disease with heart failure and stage 1 through stage 4 chronic kidney disease, or unspecified chronic kidney disease (principal); I50.31 Acute diastolic (congestive) heart failure; J81.1 Chronic pulmonary edema; T82.199A Other mechanical complication of unspecified cardiac device, initial encounter; Z82.3 Family history of stroke; Z79.82 Long term (current) use of aspirin; E78.5 Hyperlipidemia, unspecified; Z95.0 Presence of cardiac pacemaker; R60.9 Edema, unspecified; Z86.73 Personal history of transient ischemic attack (TIA), and cerebral infarction without residual deficits; Y83.1 Surgical operation with implant of artificial internal device as the cause of abnormal reaction of the patient, or of later complication, without mention of misadventure at the time of the procedure; R11.0 Nausea; R10.9 Unspecified abdominal pain; Z82.49 Family history of ischemic heart disease and other diseases of the circulatory system

== ENCOUNTER 2020-10-02 17:50 | Observation (INO) ==
[2020-10-02] MEDS ORDERED: NITROGLYCERIN 2% OINTMENT 30GM TUBE EXT STA (18:15)
--- NOTE | 2020-10-02 18:22 | Emergency Department Note ---
Impression & Plan Jaw pain, Hypertension, Headache, Carotid artery aneurysm ED Provider Note NAME: MARY STUART AGE: 85 SEX: F : 1935 ARRIVES VIA: Walk-In INFORMANT: [Patient] ED PROVIDER(S): [Bossman Stone MD] CHIEF COMPLAINT: Facial, jaw pain HISTORY OF PRESENT ILLNESS: The patient is an 85-year-old female who presents to the ED with left jaw and left sided headache that has been present now for 4-1/2 hours. Nothing makes the symptoms better or worse. She can feel the pain in her left ear. The pain is a 4 on a scale of 1-10. There is no chest pain, no shortness of breath. There has been no speech slur, no arm or leg weakness. The patient states that she can hear a click in her ear at times when she moves the jaw. The patient states that she has high blood pressure. She is taking her medications as prescribed. She had a TIA years ago and felt somewhat similar to today. She has no history of coronary disease but does have a cardiac pacemaker. The patient did take some Tylenol an hour or so before the symptoms began, she has not taken any medication for the pain itself though. Of note, the patient was bitten by a tick along the left antecubital fossa about 2 weeks ago. There is a red rash in the area still. She has not had fever, chills, cough or congestion. No body aches. REVIEW OF SYSTEMS: See HPI for pertinent positives and negatives. A total of ten systems were reviewed and were otherwise negative. PMHx/PSHx: See Below SOCIAL HISTORY: See Below. PHYSICAL EXAM: GENERAL: Patient is in no acute distress. HEENT: No acute trauma, normocephalic atraumatic, mucous membranes moist, no nasal congestion, no scleral icterus. Left TM is normal. There is a palpable click in the left TM joint with jaw movement. NECK: No stridor, no adenopathy, no meningismus, trachea is midline. LUNGS: Clear to auscultation bilaterally, no wheeze, no rhonchi, breath sounds equal. HEART: 2/6 systolic murmur, regular rate and rhythm. ABDOMEN: Soft, nontender, bowel sounds positive, no hernias, no peritonitis. EXTREMITIES: No cyanosis or edema, full range of motion of all the joints without pain or difficulty, no signs for acute trauma. NEUROLOGIC: Oriented x 3, no acute motor or sensory deficits, no focal weakness. No speech slur, no facial droop. No cerebellar dysfunction or extremity drift. SKIN: Patient has an erythematous, nonblanching rash across the left antecubital fossa. No warmth. No ascending erythema. DIFFERENTIAL DIAGNOSIS: Cardiac ischemia, aortic dissection, pulmonary embolism, pneumothorax, pneumonia, pericarditis, myocarditis, esophageal rupture, GERD, cholecystitis, pancreatitis, musculoskeletal, intracranial bleeding, aneurysm, carotid dissection, uncontrolled hypertension, Lyme disease, otitis media, TMJ dysfunction, as well as other pathologies. EMERGENCY DEPARTMENT COURSE/PROCEDURES: ECG: Indication was jaw pain. The EKG shows an atrial pacemaker with PVCs. The rate is 67. LVH is present. There is no ST elevation. The QTc is 409. Continuous Cardiac Monitoring: An order was placed for continuous cardiac monitoring. The monitor shows a rate of 75 with an atrial pacemaker. MEDICAL DECISION MAKING: There is no leukocytosis or worrisome anemia. There is a normal platelet count. No coagulopathy. No significant electrolyte abnormality or kidney failure. No worrisome liver enzyme elevation. No evidence for pancreatitis. ECG shows a an atrial pacemaker, there was no acute ischemic change. Cardiac enzyme testing x1 is not consistent with acute cardiac injury. Lyme disease testing returned negative. Covid testing is currently pending. Chest film did not show mediastinal widening, pneumonia or pneumothorax. Brain CT showed no acute bleed or mass-effect. 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 On exam, there were no focal neurologic findings. The patient was interactive, there was no speech slur. The patient was given nitroglycerin, 1 inch. She was assessed after and she felt that the nitroglycerin took her pain away. On exam, the patient does have some clicking to the left jaw. Certainly, the jaw pain may be musculoskeletal. The fact that she presents hypertensive and has had relief of pain with nitroglycerin warrants a hospital stay and further cardiac work-up. I did speak with vascular about the right sided carotid artery aneurysm, this needs followed only. The patient is aware of her findings, I did speak with the business case analyst. The on-call hospitalist was consulted. Past Med/Surg History Medical History Congestive heart failure DIASTOLIC; LAST EXACERBATION 05/2017 GERD (gastroesophageal reflux disease) CONTROLLED Hyperlipidemia Hypertension Osteoarthritis Pacemaker 05/11 SSS; DUAL CHAMBER IMPLANTED 1998; GENERATOR CHANGE 05/2017 LAST PACER CHECK 12/20/17 Transient ischemic attack (TIA) 2015 Valvular disease MODERATE TR, MILD MR Surgical History History of appendectomy History of bilateral tubal ligation History of carpal tunnel release of both wrists History of colonoscopy History of herniorrhaphy History of total hip arthroplasty BILATERAL Hx of cardiac pacemaker IMPLANTED 1998; GENERATOR CHANGE 05/2017 Social History Smoking Status: Never smoker Second Hand Exposure: No; Hx Alcohol Use: No Hx Substance Use: No Preferred Language: Nepalese Communication Ability: Effective Visual Impairment: No Limitations Hearing Ability: Hard of Hearing Director Drug Required: No Beliefs That Will Affect Care: None Current Living Situation: Alone Feels Safe at Home: Yes Assistive Devices: Walker Allergies Allergies Allergy/AdvReac Type Severity Reaction Status Date / Time lisinopril Allergy Severe TONGUE Verified 10/02/20 20:16 SWELLING adhesive Allergy Mild TAPE-RASH Verified 10/02/20 20:16 Home Meds Home Medications Medication Instructions Recorded Confirmed Glucos Chond Cplx Advanced 1 tab PO BID 12/27/17 10/02/20 Systane Balance 2 drp OPHTHALMIC (EYE) QID 12/27/17 10/02/20 calcium carbonate-vitamin D3 1 tab PO BID 12/27/17 10/02/20 [Calcium 500 + D] furosemide 20 mg PO QAM 12/27/17 10/02/20 omega 8-ofu-miv-fish oil 1 tab PO BID 12/27/17 10/02/20 potassium chloride 10 meq PO BID 12/27/17 10/02/20 acetaminophen [Tylenol Extra 1,000 mg PO TIDM 10/02/20 10/02/20 Strength] aspirin [Aspir-81] 81 mg PO HS 10/02/20 10/02/20 atorvastatin [Lipitor] 20 mg PO HS 10/02/20 10/02/20 carvedilol [Coreg] 25 mg PO BID 10/02/20 10/02/20 cholecalciferol (vitamin D3) 10 mcg PO QAM 10/02/20 10/02/20 [Vitamin D3] diltiazem HCl [Cardizem CD] 360 mg PO QAM 10/02/20 10/02/20 famotidine [Pepcid] 20 mg PO QAM 10/02/20 10/02/20 loratadine [Claritin] 10 mg PO QAM 10/02/20 10/02/20 [id number] 1 tab PO QAM 10/02/20 10/02/20 [Centrum Silver] Results & Data (ED) Vital Signs Vital Signs - 24 hr 10/02/20 17:52 10/02/20 18:16 10/02/20 18:32 Temperature 36.6 C Temperature Source Oral Pulse Rate 76 61 Pulse Rate from SpO2 Sensor Respiratory Rate 18 16 Respiratory Effort / Characteristics Non-Labored Spontaneous Respiratory Depth Normal Respiratory Pattern Regular Blood Pressure 181/82 H Blood Pressure Mean 115 Blood Pressure Position Sitting Pulse Oximetry 94 98 Oxygen Delivery Method Room Air Room Air Sepsis Recent Fever Within 48 Hours No Sepsis New/Unexplained Change in Mental Status No Sepsis Action Taken by Nursing No Action Required 10/02/20 18:45 10/02/20 18:47 10/02/20 19:00 Temperature Temperature Source Pulse Rate 60 61 60 Pulse Rate from SpO2 Sensor Respiratory Rate 26 H 18 12 Respiratory Effort / Characteristics Respiratory Depth Respiratory Pattern Blood Pressure 169/78 H 150/74 H Blood Pressure Mean 108 99 Blood Pressure Position Pulse Oximetry Oxygen Delivery Method Sepsis Recent Fever Within 48 Hours Sepsis New/Unexplained Change in Mental Status Sepsis Action Taken by Nursing 10/02/20 19:15 10/02/20 19:34 10/02/20 19:37 Temperature Temperature Source Pulse Rate 86 67 Pulse Rate from SpO2 Sensor 86 62 Respiratory Rate 16 22 15 Respiratory Effort / Characteristics Respiratory Depth Respiratory Pattern Blood Pressure 160/80 H 145/114 H 144/87 H Blood Pressure Mean 106 124 106 Blood Pressure Position Pulse Oximetry 96 92 Oxygen Delivery Method Sepsis Recent Fever Within 48 Hours Sepsis New/Unexplained Change in Mental Status Sepsis Action Taken by Nursing 10/02/20 19:45 10/02/20 20:00 10/02/20 20:15 Temperature Temperature Source Pulse Rate 60 60 62 Pulse Rate from SpO2 Sensor 60 60 Respiratory Rate 15 15 22 Respiratory Effort / Characteristics Respiratory Depth Respiratory Pattern Blood Pressure 142/74 H 162/89 H Blood Pressure Mean 96 113 Blood Pressure Position Pulse Oximetry 92 91 Oxygen Delivery Method Sepsis Recent Fever Within 48 Hours Sepsis New/Unexplained Change in Mental Status Sepsis Action Taken by Nursing 10/02/20 20:16 10/02/20 20:20 10/02/20 20:30 Temperature Temperature Source Pulse Rate 60 69 65 Pulse Rate from SpO2 Sensor 60 Respiratory Rate 13 18 16 Respiratory Effort / Characteristics Respiratory Depth Respiratory Pattern Blood Pressure 151/84 H 169/90 H Blood Pressure Mean 106 116 Blood Pressure Position Pulse Oximetry 93 Oxygen Delivery Method Sepsis Recent Fever Within 48 Hours Sepsis New/Unexplained Change in Mental Status Sepsis Action Taken by Nursing 10/02/20 20:31 10/02/20 20:45 10/02/20 20:50 Temperature Temperature Source Pulse Rate 79 61 60 Pulse Rate from SpO2 Sensor Respiratory Rate 18 20 18 Respiratory Effort / Characteristics Respiratory Depth Respiratory Pattern Blood Pressure 205/138 H 163/100 H 151/80 H Blood Pressure Mean 160 121 103 Blood Pressure Position Pulse Oximetry Oxygen Delivery Method Sepsis Recent Fever Within 48 Hours Sepsis New/Unexplained Change in Mental Status Sepsis Action Taken by Usp Medications Current Medication List: was personally reviewed by me Laboratory Data Attestation: I reviewed the patient's lab results. Result diagrams: 10/02/20 18:16 10/02/20 18:16 Lab Results 10/02/20 10/02/20 10/02/20 Range/Units 18:16 18:16 18:16 WBC 4.23 L (4.8-10.8) K/uL RBC 3.99 L (4.2-5.4) M/uL Hgb 13.4 (12.0-16.0) g/dL Hct 38.4 (37-47) % MCV 96.2 (80-100) fL MCH 33.6 (25-34) pg MCHC 34.9 (32-36) g/dL RDW Std Deviation 45.0 (36.4-46.3) fL RDW Coeff of Adeel 12.8 (11.5-14.5) % Plt Count 204 (130-400) K/uL MPV 9.2 (7.4-10.4) fL Immature Gran % (Auto) 0.0 % Neut % (Auto) 54.3 % Lymph % (Auto) 34.3 % [place] % (Auto) 9.2 % Eos % (Auto) 1.7 % Baso % (Auto) 0.5 % Neut # (Auto) 2.30 (1.4-6.5) K/uL Lymph # (Auto) 1.45 (1.2-3.4) K/uL [place] # (Auto) 0.39 (0.11-0.59) K/uL Eos # (Auto) 0.07 (0-0.5) K/uL Baso # (Auto) 0.02 (0-0.2) K/uL Immature Gran # (Auto) 0.00 (0.00-0.02) K/uL PT 10.7 (9.0-12.0) Seconds INR 1.1 (0.9-1.1) APTT 25.0 (21.0-31.0) Seconds PTT Ratio 1.0 Sodium (136-145) mmol/L Potassium (3.5-5.1) mmol/L Chloride (98-107) mmol/L Carbon Dioxide (21-32) mmol/L Anion Gap (3-11) BUN (7-18) mg/dl Creatinine (0.6-1.2) mg/dl Est Cr Clr Drug Dosing ml/min Est GFR ( Amer) ml/min Est GFR (Non-Af Amer) ml/min BUN/Creatinine Ratio (10-20) Glucose (70-99) mg/dl Calcium (8.5-10.1) mg/dl Total Bilirubin (0.2-1) mg/dl AST (15-37) U/L ALT (12-78) U/L Alkaline Phosphatase (45-117) U/L Troponin I (0-0.045) ng/ml Total Protein (6.4-8.2) gm/dl Albumin (3.4-5.0) gm/dl Globulin (2.5-4.0) gm/dl Albumin/Globulin Ratio (0.9-2) Lipase (73-393) U/L Lyme Disease IgG Ab Negative (Negative) Lyme Disease IgM Ab Negative (Negative) COVID-19 Eval Order 10/02/20 10/02/20 Range/Units 18:16 20:20 WBC (4.8-10.8) K/uL RBC (4.2-5.4) M/uL Hgb (12.0-16.0) g/dL Hct (37-47) % MCV (80-100) fL MCH (25-34) pg MCHC (32-36) g/dL RDW Std Deviation (36.4-46.3) fL RDW Coeff of Adeel (11.5-14.5) % Plt Count (130-400) K/uL MPV (7.4-10.4) fL Immature Gran % (Auto) % Neut % (Auto) % Lymph % (Auto) % [place] % (Auto) % Eos % (Auto) % Baso % (Auto) % Neut # (Auto) (1.4-6.5) K/uL Lymph # (Auto) (1.2-3.4) K/uL [place] # (Auto) (0.11-0.59) K/uL Eos # (Auto) (0-0.5) K/uL Baso # (Auto) (0-0.2) K/uL Immature Gran # (Auto) (0.00-0.02) K/uL PT (9.0-12.0) Seconds INR (0.9-1.1) APTT (21.0-31.0) Seconds PTT Ratio Sodium 141 (136-145) mmol/L Potassium 3.5 (3.5-5.1) mmol/L Chloride 108 H (98-107) mmol/L Carbon Dioxide 27 (21-32) mmol/L Anion Gap 6.0 (3-11) BUN 17 (7-18) mg/dl Creatinine 0.78 (0.6-1.2) mg/dl Est Cr Clr Drug Dosing 42.3 ml/min Est GFR ( Amer) 80.9 ml/min Est GFR (Non-Af Amer) 69.8 ml/min BUN/Creatinine Ratio 22.3 H (10-20) Glucose 90 (70-99) mg/dl Calcium 9.3 (8.5-10.1) mg/dl Total Bilirubin 0.5 (0.2-1) mg/dl AST 24 (15-37) U/L ALT 24 (12-78) U/L Alkaline Phosphatase 90 (45-117) U/L Troponin I < 0.015 (0-0.045) ng/ml Total Protein 7.4 (6.4-8.2) gm/dl Albumin 3.8 (3.4-5.0) gm/dl Globulin 3.6 (2.5-4.0) gm/dl Albumin/Globulin Ratio 1.1 (0.9-2) Lipase 120 (73-393) U/L Lyme Disease IgG Ab (Negative) Lyme Disease IgM Ab (Negative) COVID-19 Eval Order Covid19 at [facility] Administered Medications Discontinued Medications Ioversol (Optiray 320 125ml) 116 ml IV ONCE ONE Stop: 10/02/20 19:24 Last Admin: 10/02/20 19:23 Dose: 116 ml Documented by: [id number] Metoprolol Tartrate (Metoprolol Tartrate 1 Mg/Ml Vial) 5 mg IV NOW STA Stop: 10/02/20 19:45 Last Admin: 10/02/20 21:46 Dose: Not Given Documented by: [id number] Nitroglycerin (Nitroglycerin 2% Ointment 30gm Tube) 1 inch EXT NOW STA Stop: 10/02/20 18:16 Last Admin: 10/02/20 18:46 Dose: 1 inch Documented by: [id number] Imaging Data Radiologist's Impression: Head CT 10/02/20 18:15 CT head/brain wo con CLINICAL HISTORY: Left-sided headache COMPARISON STUDY: 05/24/2020 TECHNIQUE: Axial CT of the brain is performed from the vertex to the skull base. IV contrast was not administered for this examination. A dose lowering technique was utilized adhering to the principles of ALARA. CT DOSE: FINDINGS: No intra or extra-axial mass lesions are visualized. There is no CT evidence of acute cortical infarction. There is no evidence of midline shift. There is no acute hemorrhage. No calvarial fractures are visualized. There are patchy white matter hypodensities likely on a small vessel basis. There is no evidence of pathologic ventricular dilatation. There is persistent opacification of the right sphenoid sinus. IMPRESSION: 1. No acute intracranial findings 2. Persistent opacification of the right sphenoid sinus ACT 112: Negative or not required by law. Electronically signed by: Ivan Figueroa M.D. 10/02/2020 7:36 PM Head CTA 10/02/20 18:15 CT angio head w con CLINICAL HISTORY: left sided headache TECHNIQUE: CT angiography of the head was performed in a dynamic helical fashion during intravenous administration of 116 cc of Optiray. MIP imaging was performed. A dose lowering technique was utilized adhering to the principles of ALARA. CT DOSE: 1069.03 mGy.cm COMPARISON STUDY: No previous studies for comparison. FINDINGS: There is a 3.8 mm right paraclinoid internal carotid aneurysm. There are no major intracranial branch occlusions. The dural venous sinuses appear patent. There is near complete opacification of the right sphenoid sinus IMPRESSION: 1. 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 No evidence of major intracranial branch occlusion or stenosis. ACT 112: Negative or not required by law. Electronically signed by: Ivan Figueroa M.D. 10/02/2020 7:43 PM Neck CTA 10/02/20 18:15 CT angio neck with con CLINICAL HISTORY: Left-sided headache COMPARISON STUDY: No previous studies for comparison. TECHNIQUE: CT angiography was performed from the aortic arch to the skull base. MIP imaging was performed. The patient was scanned in a dynamic helical fashion during intravenous administration of 116 cc of Optiray. A dose lowering technique was utilized adhering to the principles of ALARA. CT DOSE: Technique: CT angiogram of the carotid and vertebral arteries was obtained using intravenous contrast and 3-D reconstruction. NASCET criteria was utilized. Findings: There is a multinodular thyroid gland. The largest nodule measures 17 mm. This nodule measured 14 mm on ultrasound performed March 2018 The right carotid revealed no evidence of aneurysm and no evidence of dissection. There is no evidence of hemodynamic significant stenosis. The left carotid revealed no evidence of hemodynamic significant stenosis. There is no evidence of aneurysm. There is no evidence of dissection. There is no evidence of hemodynamically significant vertebral stenosis. There is no evidence of vertebral dissection. IMPRESSION: 1. No evidence of hemodynamically significant carotid or vertebral artery stenosis. No evidence of dissection. 2. Redemonstration of a multinodular thyroid gland. ACT 112: Negative or not required by law. Electronically signed by: Ivan Figueroa M.D. 10/02/2020 7:37 PM Chest X-Ray 10/02/20 18:16 XR chest 1V portable CLINICAL HISTORY: Atypical chest pain COMPARISON STUDY: 07/09/2018 FINDINGS: The heart is mildly enlarged. There is aortic tortuosity/ectasia. There is no failure. There is no focal pulmonary consolidation. There are no pleural effusions. There is a left subclavian dual-chamber central venous pacemaker present.[ IMPRESSION: No active disease in the chest. ACT 112: Negative or not required by law. Electronically signed by: Ivan Figueroa M.D. 10/02/2020 7:10 PM Discharge Plan Visit Data Chief Complaint: Illness Stated Complaint: LEFT SIDED JAW PAIN UP TO EAR & HEADACHE BP 179/80 ED Provider: Bossman Stone Discharge Problem: Jaw pain, Hypertension, Headache, Carotid artery aneurysm Patient Disposition: Admitted As Inpatient Condition: Fair Forms Stand Alone Forms: [facility], Virtual Emergency Department, Important Visit Information Prescriptions Prescriptions: No Action potassium chloride 10 mEq Capsule, Extended Release 10 meq PO BID RF: 0 furosemide 20 mg Tablet 20 mg PO QAM RF: 0 calcium carbonate-vitamin D3 [Calcium 500 + D] 500 mg(1,250mg) -200 unit Tablet 1 tab PO BID RF: 0 Glucos Chond Cplx Advanced 750 mg-100 mg- 125 mg-1.65 mg Tablet 1 tab PO BID RF: 0 omega 9-hzq-xcl-fish oil 1,000 mg (120 mg-180 mg) Capsule 1 tab PO BID RF: 0 Systane Balance 0.6 % Drops 2 drp ophthalmic (eye) QID RF: 0 Centrum Silver Tablet 1 tab PO QAM RF: 0 atorvastatin [Lipitor] 20 mg tablet 20 mg PO HS RF: 0 cholecalciferol (vitamin D3) [Vitamin D3] 10 mcg (400 unit) Tablet 10 mcg PO QAM RF: 0 diltiazem HCl [Cardizem CD] 180 mg capsule,extended release 24hr 360 mg PO QAM RF: 0 aspirin [Aspir-81] 81 mg Tablet,Delayed Release (Dr/Ec) 81 mg PO HS RF: 0 acetaminophen [Tylenol Extra Strength] 500 mg Tablet 1,000 mg PO TIDM RF: 0 famotidine [Pepcid] 20 mg tablet 20 mg PO QAM RF: 0 loratadine [Claritin] 10 mg Tablet 10 mg PO QAM RF: 0 carvedilol [Coreg] 25 mg tablet 25 mg PO BID RF: 0 Referrals Referrals: Shruthi Hines CRNP [Primary Care Provider] - Discharge Problem: Hypertension Qualifiers: Hypertension type: unspecified Qualified Code(s): I10 - Essential (primary) hypertension Headache Qualifiers: Headache type: unspecified Headache chronicity pattern: acute headache Intractability: not intractable Qualified Code(s): R51.9 - Headache, unspecified
[2020-10-02 18:49] LABS: Basophils # (auto) 0.02 K/uL (0-0.2); Basophils % (auto) 0.5 %; Eosinophils # (auto) 0.07 K/uL (0-0.5); Eosinophils % (auto) 1.7 %; Hematocrit (blood only) 38.4 % (37-47); Hemoglobin 13.4 g/dL (12.0-16.0); Lymphocytes # (auto) 1.45 K/uL (1.2-3.4); Lymphocytes % (auto) 34.3 %; Mean Corpuscular Hemoglobin 33.6 pg (25-34); Mean Corpuscular Hgb Conc 34.9 g/dL (32-36); Mean Corpuscular Volume 96.2 fL (80-100); Mean Platelet Volume 9.2 fL (7.4-10.4); Monocytes # (auto) 0.39 K/uL (0.11-0.59); Monocytes % (auto) 9.2 %; Neutrophils % (auto) 54.3 %; Platelet Count 204 K/uL (130-400); RDW Coefficient of Variation 12.8 % (11.5-14.5); Red Blood Count 3.99 M/uL (4.2-5.4); White Blood Count 4.23 K/uL (4.8-10.8)
[2020-10-02 19:00] LABS: INR 1.1 (0.9-1.1); Prothrombin Time 10.7 Seconds (9.0-12.0)
[2020-10-02 19:06] LABS: Alanine Aminotransferase 24 U/L (12-78); Albumin Level 3.8 gm/dl (3.4-5.0); Aspartate Aminotransferase 24 U/L (15-37); BUN Creatinine Ratio 22.3 (10-20); Blood Urea Nitrogen 17 mg/dl (7-18); Calcium 9.3 mg/dl (8.5-10.1); Carbon Dioxide 27 mmol/L (21-32); Chloride 108 mmol/L (98-107); Creatinine Clr Calc Pharmacy 42.3 ml/min; Est GFR (African American) 80.9 ml/min; Est GFR (Non-African American) 69.8 ml/min; Glucose 90 mg/dl (70-99); Lipase 120 U/L (73-393); Potassium 3.5 mmol/L (3.5-5.1); Sodium 141 mmol/L (136-145)
[2020-10-02 19:10] LABS: Albumin Globulin Ratio 1.1 (0.9-2); Alkaline Phosphatase 90 U/L (45-117); Bilirubin,Total 0.5 mg/dl (0.2-1); Globulin 3.6 gm/dl (2.5-4.0); Total Protein 7.4 gm/dl (6.4-8.2); Troponin I < 0.015 ng/ml (0-0.045)
--- NOTE | 2020-10-02 19:11 | XRay Report ---
XR chest 1V portable CLINICAL HISTORY: Atypical chest pain COMPARISON STUDY: 07/09/2018 FINDINGS: The heart is mildly enlarged. There is aortic tortuosity/ectasia. There is no failure. Ther e is no focal pulmonary consolidation. There are no pleural effusions. There is a left subclavian moe l-chamber central venous pacemaker present.[ IMPRESSION: No active disease in the chest. ACT 112: Negative or not required by law. Electronically signed by: Ivan Figueroa M.D. 10/02/2020 7:10 PM
[2020-10-02] MEDS ORDERED: OPTIRAY 320 125ml IV ONE (19:23)
[2020-10-02 19:37] LABS: Lyme Ab IgG w/WB Rflx Negative (Negative); Lyme Ab IgM w/WB Rflx Negative (Negative)
--- NOTE | 2020-10-02 19:38 | CT Scan Report ---
CT angio neck with con CLINICAL HISTORY: Left-sided headache COMPARISON STUDY: No previous studies for comparison. TECHNIQUE: CT angiography was performed from the aortic arch to the skull base. MIP imaging was perfo rmed. The patient was scanned in a dynamic helical fashion during intravenous administration of 116 c c of Optiray. A dose lowering technique was utilized adhering to the principles of ALARA. CT DOSE: Technique: CT angiogram of the carotid and vertebral arteries was obtained using intravenous contrast and 3-D reconstruction. NASCET criteria was utilized. Findings: There is a multinodular thyroid gland. The largest nodule measures 17 mm. This nodule measured 14 mm on ultrasound performed March 2018 The right carotid revealed no evidence of aneurysm and no evidence of dissection. There is no evidenc e of hemodynamic significant stenosis. The left carotid revealed no evidence of hemodynamic significant stenosis. There is no evidence of an eurysm. There is no evidence of dissection. There is no evidence of hemodynamically significant vertebral stenosis. There is no evidence of verte bral dissection. IMPRESSION: 1. No evidence of hemodynamically significant carotid or vertebral artery stenosis. No evidence of di ssection. 2. Redemonstration of a multinodular thyroid gland. ACT 112: Negative or not required by law. Electronically signed by: Ivan Figueroa M.D. 10/02/2020 7:37 PM
--- NOTE | 2020-10-02 19:38 | CT Scan Report ---
CT head/brain wo con CLINICAL HISTORY: Left-sided headache COMPARISON STUDY: 05/24/2020 TECHNIQUE: Axial CT of the brain is performed from the vertex to the skull base. IV contrast was not administered for this examination. A dose lowering technique was utilized adhering to the principles of ALARA. CT DOSE: FINDINGS: No intra or extra-axial mass lesions are visualized. There is no CT evidence of acute cortical infarc tion. There is no evidence of midline shift. There is no acute hemorrhage. No calvarial fractures ar e visualized. There are patchy white matter hypodensities likely on a small vessel basis. There is no evidence of pathologic ventricular dilatation. There is persistent opacification of the right sphenoid sinus. IMPRESSION: 1. No acute intracranial findings 2. Persistent opacification of the right sphenoid sinus ACT 112: Negative or not required by law. Electronically signed by: Ivan Figueroa M.D. 10/02/2020 7:36 PM
[2020-10-02] MEDS ORDERED: METOPROLOL TARTRATE 1 MG/ML VIAL IV STA (19:44)
--- NOTE | 2020-10-02 19:45 | CT Scan Report ---
CT angio head w con CLINICAL HISTORY: left sided headache TECHNIQUE: CT angiography of the head was performed in a dynamic helical fashion during intravenous a dministration of 116 cc of Optiray. MIP imaging was performed. A dose lowering technique was utilized adhering to the principles of ALARA. CT DOSE: 1069.03 mGy.cm COMPARISON STUDY: No previous studies for comparison. FINDINGS: There is a 3.8 mm right paraclinoid internal carotid aneurysm. There are no major intracran ial branch occlusions. The dural venous sinuses appear patent. There is near complete opacification of the right sphenoid sinus IMPRESSION: 1. 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 No evidence of major intracranial branch occlusion or stenosis. ACT 112: Negative or not required by law. Electronically signed by: Ivan Figueroa M.D. 10/02/2020 7:43 PM
--- NOTE | 2020-10-02 22:34 | History & Physical Report ---
Date of Service October 02, 2020 Assessment & Plan (1) Jaw pain: Mrs. Garcia is an 85 yo woman here today for evaluation of episodic left sided jaw and head pain. - etiology uncertain: of primary concern is that symptoms represent an anginal equivalent (especially given reported improvement in pain after nitro administration) vs. giant cell arteritis vs. trigeminal neuralgia - angina - no history of CAD, but patient does have CVD risk factors (HTN, HLD). trop x [address] segment changes on EKG. Trend trops. If trops remain negative, could consider stress echo in am - giant cell arteritis- possible given unilateral head pain + jaw claudication, plus recent visual changes. check ESR/CRP - trigeminal neuralgia seems most likely given unilateral distribution, however patient does not report typical triggers (ie worse with eating/brushing teeth). No vascular/tumor growth noted to be compressing trigeminal nerve on imaging. Trial of carbamazepine could be considered if the above two etiologies are ruled out. - finding of R sphenoid sinusitis on CT is unlikely to related as it is contralateral - tylenol prn for analgesia (2) Multinodular thyroid: - noted on neck CTA - will check TSH and free T4 (3) Tick bite: - lyme testing negative - rash on L antecubital fossa not consistent with erythema migrans - no systemic symptoms at this time, although patient could get repeat testing as an outpatient in 4 weeks (4) Hypertension: - continue home dose Cardizem, Coreg, furosemide (5) Dyslipidemia: - continue home dose atorvastatin (6) Carotid artery aneurysm: - noted on Head CTA - ED provider spoke with vascular surgery (Dr. Rodrigues) who recommend no intervention DVT ppx: Lovenox Dispo: Med/Surg w. tele Diet: Heart Healthy Code: Full History of Present Illness Primary Care Provider: ALEX Stone Mrs. Garcia is an 85 yo woman who presented to the [facility] ED with left sided jaw and head pain. She denies any preceding trauma to the heat/face. This has been going on for quite a while - however she ultimately decided to come in for evaluation since the pain lasted much longer in duration this time compared to previous episodes. Typically, it lasts for just seconds in duration, but this time is lasted for minutes. She describes an intense pain along her left jawline followed by numbness. Eventually, the left side of her frontal/parietal head will begin to hurt. The head pain does not seem to occur unless the jaw pain precedes it. She says the pain is sharp, but not 'electric shock like." She has not noticed any triggers - she says eating/drinking/ brushing teeth do not make it come on. When asked about any recent visual changes, she reports a phenomena of double vision when she looks to the left. She saw her eye doctor for this problem who noticed a "strip across the retina." No interventions were recommended - but she was directed to follow-up in 2 months for a repeat eye exam. She is ambulatory around her house and outdoor garden - sometimes she uses a cane. She denies ever getting chest pain when walking around her house, although at times she does have to stop to catch her breath. Of note, she does report sustaining a tick bite to her left elbow ~ 10 days ago. Although she is unsure of how long the tick was on before she removed it - she says it was not engorged. In the ED, she was afebrile, HR was normal, BP was initially elevated to 205/138. She was given Metoprolol Tartrate 5mg IV followed by nitroglycerin, after which she reported improvement in her pain. Her CBC, Coags and CMP were normal. Her trop was undetectable. Her lipase was not elevated. Her lyme testing was negative. EKG shows a paced rhythm, no ST segment changes, no evidence of Q waves in two continuous leads, some PVCs present. CXR showed no active disease. Neck CTA showed a multinodular thyroid gland, no aneurysm or dissection. 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 Head CT showed congestion R sphenoid sinus. Allergies Allergy/AdvReac Type Severity Reaction Status Date / Time lisinopril Allergy Severe TONGUE Verified 10/02/20 20:16 SWELLING adhesive Allergy Mild TAPE-RASH Verified 10/02/20 20:16 Home Medications Medication Instructions Recorded Confirmed Type Glucos Chond Cplx Advanced 1 tab PO BID 12/27/17 10/02/20 History Systane Balance 2 drp OPHTHALMIC (EYE) QID 12/27/17 10/02/20 History calcium carbonate-vitamin D3 1 tab PO BID 12/27/17 10/02/20 History [Calcium 500 + D] furosemide 20 mg PO QAM 12/27/17 10/02/20 History omega 0-yhn-dsm-fish oil 1 tab PO BID 12/27/17 10/02/20 History potassium chloride 10 meq PO BID 12/27/17 10/02/20 History acetaminophen [Tylenol Extra 1,000 mg PO TIDM 10/02/20 10/02/20 History Strength] aspirin [Aspir-81] 81 mg PO HS 10/02/20 10/02/20 History atorvastatin [Lipitor] 20 mg PO HS 10/02/20 10/02/20 History carvedilol [Coreg] 25 mg PO BID 10/02/20 10/02/20 History cholecalciferol (vitamin D3) 10 mcg PO QAM 10/02/20 10/02/20 History [Vitamin D3] diltiazem HCl [Cardizem CD] 360 mg PO QAM 10/02/20 10/02/20 History famotidine [Pepcid] 20 mg PO QAM 10/02/20 10/02/20 History loratadine [Claritin] 10 mg PO QAM 10/02/20 10/02/20 History jfwrskgotbus-redsvjsp-kvjudb 1 tab PO QAM 10/02/20 10/02/20 History [Centrum Silver] Past Med/Surg History Medical History (Updated 10/03/20 @ 00:09 by Teodora Burrell MD) Congestive heart failure DIASTOLIC; LAST EXACERBATION 05/2017 GERD (gastroesophageal reflux disease) CONTROLLED Hyperlipidemia Hypertension Osteoarthritis Pacemaker 05/11 SSS; DUAL CHAMBER IMPLANTED 1998; GENERATOR CHANGE 05/2017 LAST PACER CHECK 12/20/17 Transient ischemic attack (TIA) 2015 Valvular disease MODERATE TR, MILD MR Surgical History History of appendectomy History of bilateral tubal ligation History of carpal tunnel release of both wrists History of colonoscopy History of herniorrhaphy History of total hip arthroplasty BILATERAL Hx of cardiac pacemaker IMPLANTED 1998; GENERATOR CHANGE 05/2017 Social History Smoking Status: Never smoker Second Hand Exposure: No; Hx Alcohol Use: No Hx Substance Use: No Preferred Language: Bhutanese Communication Ability: Effective Visual Impairment: No Limitations Hearing Ability: Hard of Hearing Medication Specialist Required: No Beliefs That Will Affect Care: None marital status: / Current Living Situation: Alone Current Living Situation Comment: home alone How many Children do You have: 6 Assistive Devices: Cane and Walker Review of Systems Review of Systems: All systems reviewed & are unremarkable except as noted in HPI & below Cardiovascular: no chest pain and no dyspnea Physical Exam Constitutional: WD/WN, vitals as above cooperative; no acute distress Eyes: + anicteric sclerae wearing glasses ENMT: external ear and nose normal, oropharynx normal Neck: normal visual inspection and trachea midline Respiratory: normal respiratory effort, lungs clear to auscultation Cardiovascular: RRR, no murmur, no edema Heart Sounds: normal S1 and normal S2 Gastrointestinal (Abdomen): normal bowel sounds, soft, nontender, no hepatosplenomegaly Skin: no rashes, warm and dry + erythema (left antecubital fossa, no bulls eye pattern) Neurologic: moves all extremities Psychiatric: A+Ox3, euthymic affect Results & Data Results & Data ([facility]) Vital Signs (Past 12 Hours) Vital Signs Temp Pulse Resp BP Pulse Ox 10/02/20 22:15 62 17 167/79 H 93 10/02/20 22:00 60 14 153/86 H 10/02/20 21:45 75 16 164/95 H 10/02/20 21:30 68 13 162/88 H 10/02/20 21:15 62 21 168/90 H 10/02/20 21:00 60 11 L 145/79 H 10/02/20 20:51 60 17 10/02/20 20:50 60 18 151/80 H 10/02/20 20:45 61 20 163/100 H 10/02/20 20:31 79 18 205/138 H 10/02/20 20:30 65 16 10/02/20 20:20 69 18 169/90 H 10/02/20 20:16 60 13 151/84 H 93 10/02/20 20:15 62 22 10/02/20 20:00 60 15 162/89 H 91 10/02/20 19:45 60 15 142/74 H 92 10/02/20 19:37 67 15 144/87 H 92 10/02/20 19:34 86 22 145/114 H 96 10/02/20 19:15 16 160/80 H 10/02/20 19:00 60 12 150/74 H 10/02/20 18:47 61 18 169/78 H 10/02/20 18:45 60 26 H 10/02/20 18:32 61 16 10/02/20 18:16 98 10/02/20 17:52 36.6 C 76 18 181/82 H 94 Supervising Physician Co-Signing Physician Notes Attending addendum: I have physically seen this patient, have supervised the medical residents activities, and agree with the H&P unless as otherwise noted. Assessment and Plan: Jaw pain/head pain- The patient will be admitted to telemetry for serial cardiac enzymes, serial EKG's, cardiac rhythm monitoring and a 2-D echocardiogram with Dopplers. Question anginal equivalent Question giant cell arteritis Question trigeminal neuralgia 3.8 mm right paraclinoid ICA aneurysm- No intervention per vascular surgery consult by ED Multinodular thyroid- Check TSH and free T4 Recent tick bite- Lyme test negative Check anaplasmosis Hypertension- Continue Cardizem, Coreg and furosemide with hold parameters Dyslipidemia- Continue atorvastatin Remaining orders and notations as noted Resident Activity Tracking Resident Involvement: Resident Care Provided Care Provided: Adult Hospital Medicine (1) Hypertension Hypertension type: unspecified Qualified Code(s): I10 - Essential (primary) hypertension
[2020-10-02] MEDS ORDERED: ONDANSETRON INJ 2 MG/ML 2 ML VIAL IV PRN (23:40)
[2020-10-02] MEDS ORDERED: POLYETHYLENE (MIRALAX) 17 GM PACK PO PRN (23:40)
[2020-10-03 00:09] LABS: C Reactive Protein < 0.29 mg/dl (0-0.29)
[2020-10-03 04:20] LABS: T4 Free Thyroxine 0.99 ng/dl (0.8-1.6); Troponin I < 0.015 ng/ml (0-0.045)
[2020-10-03] MEDS: CHOLECALCIFEROL 400 UNITS 10 MCG TAB PO SCH (07:49)
[2020-10-03] MEDS: POTASSIUM CHLORIDE 10 MEQ TABCR PO SCH ×2 (07:49→21:07)
[2020-10-03] MEDS: FAMOTIDINE 20 MG TAB PO SCH (07:50)
[2020-10-03] MEDS: FUROSEMIDE 20 MG TAB PO SCH (07:50)
[2020-10-03] MEDS: dilTIAZem HCL 180 MG CAPCR PO SCH (07:50)
[2020-10-03] MEDS: carvediloL 25 MG TAB PO SCH ×2 (07:50→21:07)
[2020-10-03] MEDS: ACETAMINOPHEN 325 MG TAB PO PRN ×2 (07:51→21:06)
[2020-10-03] MEDS: LORATADINE 10 MG TAB PO SCH (07:51)
[2020-10-03] MEDS: ARTIFICIAL TEARS OP SCH ×4 (07:54→21:09)
[2020-10-03] MEDS: ENOXAPARIN INJ 40 MG/0.4 ML SYR SQ SCH (07:55)
--- NOTE | 2020-10-03 17:27 | Hospitalist Progress Note ---
Date of Service October 03, 2020 Assessment & Plan (1) Jaw pain: 85yo female with HTN, HLD, and pacemaker placement presented to the ED with transient episodes of left jaw and head pain, and was admitted for further workup. Jaw pain, headache Differential includes TMJ disorder or other spasm, migraine, trigeminal neuralgia Unlikely ACS (negative serial troponin x2, lack of ischemic change on EKG), temporal arteritis (normal ESR/CRP), or dental pain (patient with full dentures) Symptoms completely resolved with only one brief recurrence in hospital APAP as needed Further workup on outpatient basis Lightheadedness Patient developed lightheadedness with walking on 10/03 in the setting of low- normal BP (~90/50, previously ran about 140-160/70-90) Symptoms improved throughout the day with improved PO intake; will observe ov ernight Continue to encourage PO intake, continue home antihypertensives HTN Continue home carvedilol, diltiazem, furosemide HLD Continue home atorvastatin and ASA Seasonal allergies Continue home loratadine FEN: heart healthy diet Code status: full code DVT ppx: lovenox Dispo: med/surg tele Admission and Anticipated Discharge Date Admission Date: October 02, 2020 Supervising Physician Co-Signing Physician Notes I personally examined the patient and verified all ash points of history and exam, discussed case, and agree with decision making with Dr Flanagan feeling better. pain gone vitals noted nad heent nc at mmm breathing unlabored no accessory muscless good effort skin no rashes no pallor or icterus jaw pain - seems TMJ/muscle pain - no ominous findings low BP - a little lightheaded. monitor. may need to adjust meds goal home - just need to ensure she won't have syncopal risk from BP - follow. Subjective Patient seen and evaluated at bedside this morning. No acute events overnight. Patient feels well today. Had a minor headache this morning which resolved. In the afternoon, patient had a brief pain on the left side of her forehead which resolved after a few seconds. Patient reports her pain at this time is 0/10. Denies CP, SOB, jaw pain, arm pain, nausea, and vomiting. Patient was noted with a BP of 93/50, down from a recent average systolic in the 160s. Patient's exam was unremarkable but when up and walking with RN, patient noted a bit of lightheadedness. Patient increased her fluid intake, and upon walking again later, patient denied lightheadedness. Review of Systems Review of Systems: See HPI Physical Exam Physical Exam: Constitutional: well-appearing, no acute distress HEENT: NCAT, no conjunctival injection, MMM CV: regular rhythm, no murmur appreciated, extremities well-perfused Resp: CTABL, no wheezes/rales/rhonchi appreciated, no increased work of breathing GI: soft, nondistended, nontender, BS normoactive MSK: no gross deformities appreciated Skin: warm, dry, no rash appreciated Neuro: AOx4, no focal neurological deficits appreciated Results & Data Results & Data ([facility]) Vital Signs (Past 12 Hours) Vital Signs Temp Pulse Pulse Resp BP Pulse Ox 10/03/20 16:12 36.5 C 62 19 117/64 93 10/03/20 15:09 61 10/03/20 12:52 102/52 L 10/03/20 11:45 37.0 C 56 L 19 93/50 L 92 10/03/20 08:39 60 10/03/20 07:37 36.7 C 66 16 130/62 90 Resident Activity Tracking Resident Involvement: Resident Care Provided Care Provided: Adult Hospital Medicine
--- NOTE | 2020-10-03 17:49 | Billing Data ---
Date of Service October 03, 2020 Coding Level of Care Code 88900 Subseq Obs Care Lvl 2
[2020-10-03] MEDS ORDERED: ASPIRIN 81 MG ECTAB PO SCH (21:00)
[2020-10-03] MEDS ORDERED: ATORVASTATIN 20 MG TAB PO SCH (21:00)
--- NOTE | 2020-10-03 21:44 | Billing Data ---
Date of Service October 03, 2020 Coding Level of Care Code 79106 OBS Care - Level 3
--- NOTE | 2020-10-04 06:47 | Hospitalist Progress Note ---
Date of Service October 04, 2020 Assessment & Plan (1) Jaw pain: 85yo female with HTN, HLD, and pacemaker presented to the ED with transient episodes of left jaw and head pain, since resolved. Jaw pain, headache Differential includes TMJ disorder or other spasm, migraine, trigeminal neuralgia Unlikely ACS (negative serial troponin x2, lack of ischemic change on EKG), temporal arteritis (normal ESR/CRP), or dental pain (patient with full dentures) Symptoms completely resolved with only one brief recurrence in hospital APAP as needed Further workup on outpatient basis Lightheadedness Patient developed lightheadedness with walking on 10/03 in the setting of low- normal BP (~90/50, previously ran about 140-160/70-90) Symptoms improved throughout the day with improved PO intake; will observe overnight Continue to encourage PO intake, continue home antihypertensives - check orthostatics HTN Continue home carvedilol, diltiazem, furosemide HLD Continue home atorvastatin and ASA Seasonal allergies Continue home loratadine FEN: heart healthy diet Code status: full code DVT ppx: lovenox Dispo: med/surg tele Admission and Anticipated Discharge Date Admission Date: October 02, 2020 Subjective Patient states she feels well today.. Denies lightheadedness. She has not had any jaw pain or headache. No fatigue or weakness. She has been eating/drinking well. Patient feels ready to go home today. Review of Systems Review of Systems: Constitutional: Denies fever, chills Eyes: Denies blurry vision, vision changes Cardiovascular: Denies chest pain, palpitations Respiratory: Denies shortness of breath Gastrointestinal: Denies abdominal pain, nausea, vomiting, constipation, diarrhea Genitourinary: Denies urinary symptoms including dysuria Musculoskeletal: Denies weakness, muscle aches/pain, joint aches/pain Neurological: Denies headache, numbness, tingling, focal weakness Physical Exam Physical Exam: General: Grossly A&O. NAD. Cooperative. HEENT: Atraumatic, normocephalic. EOMI. MMM. Temples nontender to palpation. No jaw pain on palpation or w/ chewing. Pulm: CTAB. -wheezes, -rales, -rhonchi. No respiratory distress. Cardiac: RRR, -mrg. Radial pulses intact and symmetrical. No LE edema. Cap refill <2s. Abdominal: Nontender, nondistended, soft. Integumentary: Has insect bite topher at L antecubital fossa. No surrounding erythema. Mild varicose veins on L ureña. Results & Data Results & Data ([facility]) Vital Signs (Past 12 Hours) Vital Signs Temp Pulse Pulse Pulse Resp BP BP 10/04/20 04:30 36.6 C 67 20 146/69 H 10/04/20 00:07 61 10/03/20 23:17 37.1 C 62 18 108/60 10/03/20 20:00 36.9 C 82 18 124/65 Pulse Ox 10/04/20 04:30 93 10/04/20 00:07 10/03/20 23:17 92 10/03/20 20:00 93 Resident Activity Tracking Resident Involvement: Resident Care Provided Care Provided: Adult Hospital Medicine
[2020-10-04 07:00] LABS: BUN Creatinine Ratio 25.1 (10-20); Blood Urea Nitrogen 20 mg/dl (7-18); Carbon Dioxide 28 mmol/L (21-32); Chloride 109 mmol/L (98-107); Creatinine Clr Calc Pharmacy 44.6 ml/min; Est GFR (African American) 80.9 ml/min; Est GFR (Non-African American) 69.8 ml/min; Glucose 92 mg/dl (70-99); Potassium 3.8 mmol/L (3.5-5.1); Sodium 141 mmol/L (136-145)
[2020-10-04 07:05] LABS: Troponin I < 0.015 ng/ml (0-0.045)
[2020-10-04] MEDS: carvediloL 25 MG TAB PO SCH (08:04)
[2020-10-04] MEDS: dilTIAZem HCL 180 MG CAPCR PO SCH (08:06)
[2020-10-04] MEDS: POTASSIUM CHLORIDE 10 MEQ TABCR PO SCH (08:06)
[2020-10-04] MEDS: FAMOTIDINE 20 MG TAB PO SCH (08:07)
[2020-10-04] MEDS: CHOLECALCIFEROL 400 UNITS 10 MCG TAB PO SCH (08:07)
[2020-10-04] MEDS: FUROSEMIDE 20 MG TAB PO SCH (08:07)
[2020-10-04] MEDS: LORATADINE 10 MG TAB PO SCH (08:07)
[2020-10-04] MEDS: ENOXAPARIN INJ 40 MG/0.4 ML SYR SQ SCH (08:08)
[2020-10-04] MEDS: ARTIFICIAL TEARS OP SCH ×2 (08:10→13:01)
--- NOTE | 2020-10-04 12:40 | Discharge Summary ---
Date of Service October 04, 2020 Admission HPI Per Admitting Provider Mrs. Garcia is an 85 yo woman who presented to the [facility] ED with left sided jaw and head pain. She denies any preceding trauma to the heat/face. This has been going on for quite a while - however she ultimately decided to come in for evaluation since the pain lasted much longer in duration this time compared to previous episodes. Typically, it lasts for just seconds in duration, but this time is lasted for minutes. She describes an intense pain along her left jawline followed by numbness. Eventually, the left side of her frontal/parietal head will begin to hurt. The head pain does not seem to occur unless the jaw pain precedes it. She says the pain is sharp, but not 'electric shock like." She has not noticed any triggers - she says eating/drinking/ brushing teeth do not make it come on. When asked about any recent visual changes, she reports a phenomena of double vision when she looks to the left. She saw her eye doctor for this problem who noticed a "strip across the retina." No interventions were recommended - but she was directed to follow-up in 2 months for a repeat eye exam. She is ambulatory around her house and outdoor garden - sometimes she uses a cane. She denies ever getting chest pain when walking around her house, although at times she does have to stop to catch her breath. Of note, she does report sustaining a tick bite to her left elbow ~ 10 days ago. Although she is unsure of how long the tick was on before she removed it - she says it was not engorged. In the ED, she was afebrile, HR was normal, BP was initially elevated to 205/138. She was given Metoprolol Tartrate 5mg IV followed by nitroglycerin, after which she reported improvement in her pain. Her CBC, Coags and CMP were normal. Her trop was undetectable. Her lipase was not elevated. Her lyme testing was negative. EKG shows a paced rhythm, no ST segment changes, no evidence of Q waves in two continuous leads, some PVCs present. CXR showed no active disease. Neck CTA showed a multinodular thyroid gland, no aneurysm or dissection. 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 Head CT showed congestion R sphenoid sinus. Admission Exam Per Admitting Provider Constitutional: WD/WN, vitals as above cooperative; no acute distress Eyes: + anicteric sclerae wearing glasses ENMT: external ear and nose normal, oropharynx normal Neck: normal visual inspection and trachea midline Respiratory: normal respiratory effort, lungs clear to auscultation Cardiovascular: RRR, no murmur, no edema Heart Sounds: normal S1 and normal S2 Gastrointestinal (Abdomen): normal bowel sounds, soft, nontender, no hepatosplenomegaly Skin: no rashes, warm and dry + erythema (left antecubital fossa, no bulls eye pattern) Neurologic: moves all extremities Psychiatric: A+Ox3, euthymic affect Principal Diagnosis temporomandibular joint dysfunction Discharge Exam General: Grossly A&O. NAD. Cooperative. HEENT: Atraumatic, normocephalic. EOMI. MMM. Temples nontender to palpation. No jaw pain on palpation or w/ chewing. Pulm: CTAB. -wheezes, -rales, -rhonchi. No respiratory distress. Cardiac: RRR, -mrg. Radial pulses intact and symmetrical. No LE edema. Cap refill <2s. Abdominal: Nontender, nondistended, soft. Integumentary: Has insect bite topher at L antecubital fossa. No surrounding erythema. Mild varicose veins on L ureña. Discharge Data Allergies Allergy/AdvReac Type Severity Reaction Status Date / Time lisinopril Allergy Severe TONGUE Verified 10/02/20 20:16 SWELLING adhesive Allergy Mild TAPE-RASH Verified 10/02/20 20:16 Consultations 10/02/20 20:31 ED Decision to Admit Stat Ordered Studies 10/02/20 18:15 CT angio head w con Stat 1. 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 No evidence of major intracranial branch occlusion or stenosis. CT angio neck with con Stat 1. No evidence of hemodynamically significant carotid or vertebral artery stenosis. No evidence of dissection. 2. Redemonstration of a multinodular thyroid gland. CT head/brain wo con Stat 1. No acute intracranial findings 2. Persistent opacification of the right sphenoid sinus Hospital Course (1) Jaw pain: Taty Garcia is an 85 y/o female with PMHx of TIA, HTN, HLD, and pacemaker was admitted to [facility] from 10/03/20-10/04/20 w/ transient episodes of left jaw pain and headache, since resolved. Jaw pain and headache, most likely musculoskeletal etiology such as TMJ dysfunction Patient has had transient episodes L jaw pain/headache/numbness w/ the presenting episode lasting longer than usual. Cardiac equivalent was considered, inpatient workup of ecg and neg serial trops, was neg. May consider stress test as an outpatient. Trigeminal neuralgia (not associated w/ chewing), temporal arteritis (some visual changes previously as outpatient, but normal ESR and CRP), and dental pain (has dentures) were considered but less consistent. Considered TIA as patient has had similar in past. TMJ dysfunction was thought to be moderately likely based on symptom improvement and good response to osteopathic treatment. Numbness and neck pain are somewhat atypical for this, however. Monitor for recurrence of symptoms. incidental findings on imaging: R sphenoid sinus occlusion, unlikely to contribute to symptoms as this was on contralateral side. 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 multinodular goiter (TSH 0.91. fT4 0.99, f/u as outpt). Tick bite Patient had a tick bite at L antecubital fossa 2 weeks ago w/ tick removed by patient after unknown duration. There was erythema surrounding bite topher at the L antecubital fossa that was thought not consistent w/ erythema migrans and w/o bull's eye morphology and empiric doxy was not started. Lyme testing was negative. Lightheadedness, mild, resolved Patient developed lightheadedness with walking on 10/03 in the setting of low- normal BP (~90/50, previously ran about 140-160/70-90) Symptoms improved throughout the day with improved PO intake * positive orthostatics: 126/65->93/58 supine to standing * instructed patient to maintain adequate PO fluid intake, aiming for 64oz per day * no changes were made to antihypertensives HTN Continue home carvedilol, diltiazem, furosemide HLD Continue home atorvastatin and ASA Seasonal allergies Continue home loratadine Patient was full code during this admission. Total Time Total Time Spent Total Time Spent (In Minutes): Please see attending documentation. Discharge Plan Discharge Items Patient Disposition: Home - Self-Care Reason For Visit: LEFT FACIAL/HEAD PAIN Discharge Diagnosis: TMJ, Muscle spasm Activity: Per Instructions section Non-emergency contact: Primary Care Provider Call non-emergency contact if: your symptoms worsen, your pain is not controlled and your temperature is above 101 Follow-up/Referrals: Shruthi Hines CRNP [Primary Care Provider] - Diet: Regular Addtl Attending Provider Instructions: Jose, It was our pleasure caring for you at [facility] from 10/02 - 10/04/20 for your jaw pain and headache. The cardiac workup, which included an ekg and heart enzymes (troponin) did not suggest a problem related to your heart. Inflammatory markers were not elevated. Your jaw pain has since resolved. Head and neck imaging were performed and did not show new changes that would explain your symptoms. 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 Lyme testing was negative. Please follow up with your PCP in 1 week. Let your PCP know if your jaw pain symptoms return. Please continue your home medications as prescribed. You had mild lightheadedness during this hospitalization. You had positive orthostatic blood pressures which means that your blood pressure drops more than it should upon standing from lying down. This can cause the lightheadedness symptoms. I recommend staying hydrated by aiming for 64 ounces of fluid intake p er day (8 glasses or 4 16 ounce water bottles). If you develop any new or worsening symptoms including fever, chills, sweats, chest pain, chest pressure, difficulty breathing, uncontrolled nausea/vomiting, rash, wheezing, passing out or nearly passing out, bleeding, black/bloody bowel movements, or other new or concerning symptoms please call your primary care physician, or call 911 for re-evaluation in the emergency department if you are very concerned. Pending Studies at Discharge: No Stand-Alone Forms: My [facility], Smoking Cessation Medications and DC Order Prescriptions: Continued potassium chloride 10 mEq Capsule, Extended Release 10 meq PO BID RF: 0 furosemide 20 mg Tablet 20 mg PO QAM RF: 0 calcium carbonate-vitamin D3 [Calcium 500 + D] 500 mg(1,250mg) -200 unit Tablet 1 tab PO BID RF: 0 Glucos Chond Cplx Advanced 750 mg-100 mg- 125 mg-1.65 mg Tablet 1 tab PO BID RF: 0 omega [id number]-fish oil 1,000 mg (120 mg-180 mg) Capsule 1 tab PO BID RF: 0 Systane Balance 0.6 % Drops 2 drp ophthalmic (eye) QID RF: 0 [id number]-dmyfturg-ukjhyy Tablet 1 tab PO QAM RF: 0 atorvastatin [Lipitor] 20 mg tablet 20 mg PO HS RF: 0 cholecalciferol (vitamin D3) [Vitamin D3] 10 mcg (400 unit) Tablet 10 mcg PO QAM RF: 0 diltiazem HCl [Cardizem CD] 180 mg capsule,extended release 24hr 360 mg PO QAM RF: 0 aspirin 81 mg Tablet,Delayed Release (Dr/Ec) 81 mg PO HS RF: 0 acetaminophen [Tylenol Extra Strength] 500 mg Tablet 1,000 mg PO TIDM RF: 0 famotidine [Pepcid] 20 mg tablet 20 mg PO QAM RF: 0 loratadine [Claritin] 10 mg Tablet 10 mg PO QAM RF: 0 carvedilol [Coreg] 25 mg tablet 25 mg PO BID RF: 0 Discharge Orders: Discharge Order (Routine); Ordered 10/04/20 Ordered By: Prabhakar Sterling Admission Data Admit Date/Time: 10/02/20 21:29 Attending Provider: Triny Hernadez Admit Provider: Teodora Burrell Primary Care Provider: Shruthi Hines Other Providers: John Gallardo ; Daniel Pena Other Interventions: Discharge Summary Assessment (RN) Last Done: 10/04/20 15:52 Supervising Physician Co-Signing Physician Notes Resident Physician Supervision Note: I independently interviewed and examined the patient and verified the ash history and physical, reviewed labs and image studies and agree with resident Dr. Sterling findings and care plan. Resident Activity Tracking Resident Involvement: Resident Care Provided Care Provided: Adult Hospital Medicine
--- NOTE | 2020-10-04 13:53 | Electrocardiogram Report ---
Test Reason : Blood Pressure : / mmHG Vent. Rate : 067 BPM Atrial Rate : 067 BPM P-R Int : 232 ms QRS Dur : 080 ms QT Int : 388 ms P-R-T Axes : -08 -20 023 degrees QTc Int : 409 ms Atrial-paced rhythm with prolonged AV conduction with occasional Premature ventricular complexes Moderate voltage criteria for LVH, may be normal variant Abnormal ECG When compared with ECG of 09-JUL-2018 09:18, Premature ventricular complexes are now Present Confirmed by Tripp Sen ([id number]) on 10/04/2020 1:53:10 PM Referred By: REFERRED SELF Confirmed By:Tirpp Sen
== END 2020-10-04 17:35 | disposition home or self-care (01) ==
LOC: ED 17:50 → 2N 17:50 → SUATTDRO 21:29 → 2N 23:45